=== PATIENT | female | born 1945 | race Caucasian/White ===

== ENCOUNTER → 2018-01-08 10:17 | Outpatient (CLI) | payer OTHER, SELFPAY ==
--- NOTE | 2018-01-08 12:05 | DI.RAD.S_ITS ---
PROCEDURE: XR LUMBAR SPINE MIN 4V INDICATIONS: BACK PAIN UNSPECIFIED TECHNIQUE: 3 views of the lumbar spine acquired. COMPARISON: None. FINDINGS: Bones: 5 nonrib-bearing vertebrae are present. There is good I L5 on S1 anterolisthesis. There is a L5-S1 pars interarticularis defect. No vertebral body compression fractures. No suspicious bony lesions. Soft tissues: Overlying bowel gas pattern is normal. No suspicious soft tissue calcifications. Flexion/extension: There is limited range of motion with flexion and extension. No subluxation. IMPRESSION: L5-S1 spondylolysis and spondylolisthesis. No subluxation on flexion/extension. Dictated by: Bee Martinez M.D. on 01/08/2018 at 17:56 Approved by: Bee Martinez M.D. on 01/08/2018 at 17:58
[2018-01-08 12:32] LABS: Hep C Virus Ab w/Reflex Quant NEGATIVE s/c (NEGATIVE)
== END ==
PROVIDERS: PCP Physician Assistant; Visit Provider Neurological Surgery
DX: Z11.59 Encounter for screening for other viral diseases (principal); M54.9 Dorsalgia, unspecified
CPT/HCPCS: 36415; 72110; 86803

== ENCOUNTER → 2018-03-25 07:04 | Outpatient (CLI) | payer OTHER, SELFPAY ==
[2018-03-25 09:07] LABS: Add Manual Diff / Slide Review NO; Basophils Percent Auto 0.8 % (0-2); Eosinophils Percent Auto 2.9 % (2-4); Hematocrit 39.7 % (36-46); Hemoglobin 13.3 g/dL (12.0-16.0); Lymphocytes Percent Auto 50.2 % (25-40); Mean Corpuscular HGB Conc 33.6 % (30-36); Mean Corpuscular Hemoglobin 30.8 PG (26-34); Mean Corpuscular Volume 91.9 fL (80-100); Monocytes Percent Auto 9.2 % (3-14); Neutrophils Absolute Auto 2000 /uL (3000-5900); Neutrophils Percent Auto 36.9 % (50-75); Platelet Count 259 X10^3/uL (150-400); Red Blood Cell Count 4.33 X10^6/uL (4.0-5.2); Red Cell Distribution Width 13.5 % (11.6-14.8); White Blood Cell Count 5.5 X10^3/uL (4.5-11.0)
[2018-03-25 09:38] LABS: Alanine Aminotransferase 30 IU/L (9-52); Albumin 4.4 g/dL (3.5-5.0); Albumin Globulin Ratio 1.5 (1.0-2.8); Alkaline Phosphatase 79 U/L (38-126); Aspartate Aminotransferase 28 IU/L (14-36); BUN Creatinine Ratio 14.4 (6-22); Bilirubin Total 0.8 mg/dL (0.2-1.3); Blood Urea Nitrogen 13 mg/dL (7-17); Calcium 9.3 mg/dL (8.4-10.2); Carbon Dioxide 29 mmol/L (22-32); Chloride 101 mmol/L (98-107); Cholesterol 206 mg/dL (140-199); Estimated Glomerular Filt Rate > 60.0 mL/min (>60); Glucose 89 mg/dL (80-110); HDL Cholesterol 63 mg/dL (40-60); HEMOLYSIS < 15 (0-50); LDL Cholesterol Calculated 121 mg/dL (<100); Potassium 3.8 mmol/L (3.4-5.1); Sodium 140 mmol/L (137-145); Total Protein 7.4 g/dL (6.3-8.2); Triglycerides 110 mg/dL (35-150)
[2018-03-25 09:49] LABS: Vitamin D 25 Hydroxy (D3) 54.9 ng/mL (30.0-100.0)
[2018-03-25 09:53] LABS: Free T4, Direct Thyroxine 1.67 ng/dL (0.78-2.19)
[2018-03-25 10:07] LABS: Thyroid Stimulating Hormone 3.21 uIU/mL (0.47-4.68)
[2018-03-25 10:21] LABS: Vitamin B12 > 1000 pg/mL (239-931)
== END ==
PROVIDERS: PCP Physician Assistant; Visit Provider Physician Assistant
DX: E03.9 Hypothyroidism, unspecified (principal); E78.5 Hyperlipidemia, unspecified; M81.0 Age-related osteoporosis without current pathological fracture; D51.0 Vitamin B12 deficiency anemia due to intrinsic factor deficiency
CPT/HCPCS: 36415; 80053; 80061; 82306; 82607; 84439; 84443; 85025

== ENCOUNTER → 2018-06-13 09:36 | Outpatient (CLI) | payer OTHER, SELFPAY ==
[2018-06-13 11:00] LABS: BUN Creatinine Ratio 15.7 (6-22); Blood Urea Nitrogen 11 mg/dL (7-17); Calcium 9.5 mg/dL (8.4-10.2); Carbon Dioxide 28 mmol/L (22-32); Chloride 101 mmol/L (98-107); Estimated Glomerular Filt Rate > 60.0 mL/min (>60); Glucose 97 mg/dL (80-110); HEMOLYSIS < 15 (0-50); Potassium 4.5 mmol/L (3.4-5.1); Sodium 143 mmol/L (137-145)
== END ==
PROVIDERS: PCP Physician Assistant; Visit Provider Physician Assistant
DX: E78.1 Pure hyperglyceridemia (principal)
CPT/HCPCS: 36415; 80048

== ENCOUNTER → 2018-06-26 11:27 | Outpatient (CLI) | payer OTHER, SELFPAY ==
[2018-06-26 11:56] LABS: Add Manual Diff / Slide Review NO; Basophils Percent Auto 0.8 % (0-2); Eosinophils Percent Auto 1.5 % (2-4); Hemoglobin 11.5 g/dL (12.0-16.0); Lymphocytes Percent Auto 32.3 % (25-40); Mean Corpuscular HGB Conc 33.7 % (30-36); Mean Corpuscular Hemoglobin 30.8 PG (26-34); Mean Corpuscular Volume 91.5 fL (80-100); Neutrophils Absolute Auto 4500 /uL (1500-7000); Neutrophils Percent Auto 58.4 % (50-75); Platelet Count 540 X10^3/uL (150-400); Red Blood Cell Count 3.72 X10^6/uL (4.0-5.2); Red Cell Distribution Width 14.4 % (11.6-14.8); White Blood Cell Count 7.7 X10^3/uL (4.5-11.0)
[2018-06-26 12:26] LABS: HEMOLYSIS < 15 (0-50); Iron 68 ug/dL (37-170)
[2018-06-26 12:39] LABS: Percent Iron Saturation 20 % (15-50); Total Iron Binding Capacity 343 ug/dL (265-497); Transferrin 302 mg/dL (206-381)
[2018-06-26 12:47] LABS: Ferritin 37.3 ng/mL (11.1-264)
[2018-06-26 13:00] LABS: Vitamin B12 943 pg/mL (239-931)
== END ==
PROVIDERS: PCP Physician Assistant; Visit Provider Physician Assistant
DX: D51.0 Vitamin B12 deficiency anemia due to intrinsic factor deficiency (principal); R79.89 Other specified abnormal findings of blood chemistry
CPT/HCPCS: 36415; 82607; 82728; 83540; 83550; 85025

== ENCOUNTER → 2018-09-20 08:34 | Outpatient (CLI) | payer OTHER, SELFPAY ==
[2018-09-20 09:51] LABS: Add Manual Diff / Slide Review NO; Basophils Absolute Auto 0 /uL (0-100); Basophils Percent Auto 0.7 % (0-2); Eosinophils Absolute Auto 100 /uL (0-450); Eosinophils Percent Auto 2.1 % (2-4); Hemoglobin 12.5 g/dL (12.0-16.0); Lymphocytes Absolute Auto 2600 /uL (1100-4500); Lymphocytes Percent Auto 41.3 % (25-40); Mean Corpuscular HGB Conc 32.8 % (30-36); Mean Corpuscular Hemoglobin 29.7 PG (26-34); Mean Corpuscular Volume 90.6 fL (80-100); Monocytes Absolute Auto 500 /uL (0-900); Monocytes Percent Auto 8.2 % (3-14); Neutrophils Absolute Auto 3000 /uL (1500-7000); Neutrophils Percent Auto 47.7 % (50-75); Platelet Count 281 X10^3/uL (150-400); Red Cell Distribution Width 13.9 % (11.6-14.8); White Blood Cell Count 6.3 X10^3/uL (4.5-11.0)
[2018-09-20 10:12] LABS: Alanine Aminotransferase 33 IU/L (9-52); Albumin 4.5 g/dL (3.5-5.0); Albumin Globulin Ratio 1.5 (1.0-2.8); Alkaline Phosphatase 80 U/L (38-126); Aspartate Aminotransferase 34 IU/L (14-36); BUN Creatinine Ratio 13.8 (6-22); Bilirubin Total 0.6 mg/dL (0.2-1.3); Blood Urea Nitrogen 11 mg/dL (7-17); Calcium 9.3 mg/dL (8.4-10.2); Carbon Dioxide 25 mmol/L (22-32); Chloride 98 mmol/L (98-107); Estimated Glomerular Filt Rate > 60.0 mL/min (>60); Glucose 96 mg/dL (80-110); HEMOLYSIS < 15 (0-50); Potassium 4.1 mmol/L (3.4-5.1); Sodium 134 mmol/L (137-145); Total Protein 7.5 g/dL (6.3-8.2)
[2018-09-20 10:56] LABS: Vitamin B12 869 pg/mL (239-931)
[2018-09-20 10:59] LABS: Thyroid Stimulating Hormone 1.46 uIU/mL (0.47-4.68)
== END ==
PROVIDERS: PCP Physician Assistant; Visit Provider Internal Medicine
DX: Z00.00 Encounter for general adult medical examination without abnormal findings (principal); D51.0 Vitamin B12 deficiency anemia due to intrinsic factor deficiency; E03.9 Hypothyroidism, unspecified
CPT/HCPCS: 36415; 80053; 82607; 84443; 85025

== ENCOUNTER 2018-10-08 13:45 | Outpatient (RCR) | payer OTHER, SELFPAY ==
--- NOTE | 2018-08-27 16:25 | PT.OPPOC ---
Current Diagnoses Lumbago with sciatica, right side (08/27/18) Low back pain (08/27/18) Provider Visit Care Team Role Provider Type Amanda Burgos PA-C Attending Provider Advanced Manager Forensic Primary Care Provider Specialty: Medical Address: [address] [place] [address], [id number] Email: [email or web address] Plan Of Care PT-OP-T Assessment and Plan Start: 07/11/18 11:48 Freq: Status: Active Protocol: Document 08/27/18 11:08 [facility] (Rec: 08/29/18 09:25 [facility] [id number]) Physical Therapy Assessment Rehab Potential Rehabilitation Potential Good Evaluation Complexity Number of Personal Factors/Comorbidities 3 or More Number of Body Systems Impaired 4 or More Clinical Presentation at Evaluation Evolving Impairments Impairments Activity Tolerance Balance Functional Activities Functional Mobility Gait Pain Posture ROM Soft Tissue Mobility Strength Other Concerns Barriers to Rehabilitation Limited insurance benefit 6 visits allowed before pre-auth Goals posture Short Term Goal (STG) Pt will present with good posture without cueing. STG Duration 09/27/18 Dye Automation Operator Goal (LTG) Pt will have good postural awareness during gardening and will understand appropriate positioning. LTG Duration 10/27/18 strength Short Term Goal (STG) Pt will be indep with HEP STG Duration 09/27/18 Dye Automation Operator Goal (LTG) Pt will have 5/5 strength in LE and demonstrate good core control with 4/5 LPM in all planes LTG Duration 10/27/18 lifting Mcc Goal (LTG) Pt will be able to do lifting without LBP and with good mechanics without cueing. LTG Duration 10/27/18 Assessment Summary Assessment Pt presents s/p lumbar fusion with radicular pain that limits her activity. She has impaired posture, dec LE & core strength, impaired movement patterns and limited activity tolerance d/t pain. Pt would benefit from skilled PT to address these concerns and dec pt's daily pain. Physical Therapy Plan Frequency and Duration Frequency of Treatment 1-2x/week Duration of Treatment 2 months Plan of Care Start Date 08/29/18 Plan of Care End Date 10/29/18 Therapeutic Interventions Therapeutic Interventions Aquatic Therapy Balance Training Gait Training Home Exercise Program Joint Mobilizations Manual Therapy Soft Tissue Mobilization Taping Therapeutic Activities Therapeutic Exercises Modalities Cold Pack/Ice Massage Electric Stimulation Hot Packs Ultrasound Next Visit Focus/Plan Next Note Type Treatment Note Next Visit Plan Core stability exercises, postural edu, STM Plan of Care Dates Plan of Care Start Date 08/29/18 Plan of Care End Date 10/29/18 Please Sign and Return: I have reviewed this Plan of Care and certify that the skilled therapy services above are required to meet the patient?s needs. Physician Signature Date Printed Name and Credentials Clinical Instructor Signature Printed Name and Credentials
--- NOTE | 2018-08-27 16:25 | PT.OIE ---
Current Diagnoses Lumbago with sciatica, right side (08/27/18) Low back pain (08/27/18) Past Medical History (Last Updated 03/04/18 @ 10:56 by Samantha Mcnally) Actinic keratosis (Chronic 1997) Ankle pain (Chronic 1967) Anxiety (Chronic 2014) Cardiac arrhythmia (Chronic 2009) Cataract (Chronic 2007) Chronic back pain (Chronic 1995) Hayfever (Chronic 1995) Hypothyroidism (Chronic 1997) Nasal valve collapse (Chronic 2004) Osteoarthritis (Chronic 1995) Osteopenia (Chronic) Osteoporosis (Chronic 1995) Peripheral neuropathy (Chronic 2005) Pernicious anemia (Chronic 2000) Scoliosis (Chronic) Sleep apnea (Chronic 2011) Tinnitus (Chronic 1995) Urinary incontinence (Chronic 2015) Abnormal Pap smear of cervix (Resolved 1995) Ankle fracture (Resolved 1966) Cervical cancer (Resolved 1997) Cervical dysplasia (Resolved 1995) Chicken pox (Resolved 1955) Genital warts (Resolved 1995) HPV (human papilloma virus) infection (Resolved 1995) Head injury with loss of consciousness (Resolved 03/2015) Infection of hand due to bite (Resolved 1974) Measles (Resolved 1956) Mumps (Resolved 1955) Recurrent sinusitis (Resolved 1995) Skin cancer (Resolved 2007) Squamous cell carcinoma of skin of left cheek (Resolved 2007) Past Surgical History (Last Updated 03/04/18 @ 10:33 by Samantha Mcnally) Anesthesia complication (Resolved) History of hand surgery (Resolved 1974) History of surgery of head (Resolved 03/2015) Status post Mohs surgery (Resolved 1997) Status post hysterectomy (Resolved 1997) Provider Visit Care Team Role Provider Type Amanda Burgos PA-C Attending Provider Advanced Docent Coordinator Primary Care Provider Specialty: Medical Address: [address] [place] [address], [facility] Email: [email or web address] Physical Therapy Initial Evaluation PT-OP-A Visit Information Start: 07/11/18 11:48 Freq: Status: Active Protocol: Document 08/27/18 11:08 [facility] (Rec: 08/27/18 12:19 [facility] [id number]) Out-Patient Physical Therapy Visit Information Visit Information Visit Type Initial Evaluation Visit Start Time 11:20 Visit Stop Time 12:10 Total Visit Minutes 50 Visit Number 1/6 Number of RECORDS ANALYST Visits 0 Precautions Precautions Limit bending, twisting and lifting >8 Lb PT-OP-B Current Condition Start: 07/11/18 11:48 Freq: Status: Active Protocol: Document 08/27/18 11:08 [facility] (Rec: 08/27/18 12:19 [facility] [id number]) Current Condition History of Current Condition Onset Date fusion 06/05/19 History of Current Condition Pt had a back fusion Jun 05, 2018 and has history of hystorectomy 20 years ago. Reports LBP for past 18 years that got worse over the past 2 years. Her main concern is sciatic pain that travels from buttocks into lat thigh and into lower leg and foot. Pt reports she wants to also work on posture. Pt notes she is doing glute and quad sets as instructed. Pt has mild incontence with sneezing but no other issues. Pt likes to walk and garden. Pt reports sometimes back grabs: and she has to completely stop activity. Prior Treatments and Tests MRI & EMG showed issues at L5 & S1 Treatment Goals Patient/Caregiver Goals Improve posture & get exercises to improve sciatic; learn how to bend; gardening PT-OP-C Subjective Start: 07/11/18 11:48 Freq: Status: Active Protocol: Document 08/27/18 11:08 [facility] (Rec: 08/27/18 12:19 [facility] [id number]) Patient Questionnaires Oswestry Low Back Index Oswestry Score 46 Oswestry Impairment 40 to 59% Impaired (Score 40- 59) OP-PT Pain Assessment Location LBP & RLE Pain Location Details LBP Intensity 7 Scale Used Numeric (1 - 10) Description Burning Throbbing Description- Other goes higher w/catching of LB, Frequency Daily Radiating Location R hip and lat R leg & cannon & foot that gets worse in PM Variations/Patterns sometimes 2 lat toes & lat foot goes numb Pain Aggravating Factors Sitting Other Pain Aggravating Factors end of day, disturbs sleep, gardening Pain Alleviating Factors Cold Other Pain Alleviating Factors change positions frequently PT-OP-J Posture/Palpation/Skin Start: 07/11/18 11:48 Freq: Status: Active Protocol: Document 08/27/18 11:08 [facility] (Rec: 08/27/18 12:19 [facility] [id number]) Posture Evaluation Dannielle Postural Classification System Dannielle Postural Classifications Anterior/Posterior PT-OP-M Strength Start: 07/11/18 11:48 Freq: Status: Active Protocol: Document 08/27/18 11:08 [facility] (Rec: 08/27/18 12:19 [facility] [id number]) Hip Strength Hip Manual Muscle Testing Right Flexion (L2) 5 Normal Abduction 3+ Fair+ External Rotation 4- Good- Internal Rotation 4 Good Left Flexion (L2) 4+ Good+ Abduction 4- Good- External Rotation 4 Good Internal Rotation 4 Good Knee Strength Knee Manual Muscle Testing Right Flexion (S2) 4 Good Extension (L3) 4 Good Left Flexion (S2) 4 Good Extension (L3) 4 Good Ankle/Foot Strength Ankle and Foot Manual Muscle Testing Right Dorsiflexion (L4) 5 Normal Plantarflexion (S1) 4 Good Left Dorsiflexion (L4) 5 Normal Plantarflexion (S1) 5 Normal Comments PF tested seated PT-OP-Q Treatments Start: 07/11/18 11:48 Freq: Status: Active Protocol: Document 08/27/18 11:08 [facility] (Rec: 08/29/18 09:25 [facility] [id number]) Therapeutic Exercises Supine Exercises figure 4 stretch Supine Exercise Name figure 4 Side bilateral Reps/Minutes 30 sec Self-Care/Home Management Treatment Education Other Education anatomy edu and importance of core and appropriate movement patterns PT-OP-T Assessment and Plan Start: 07/11/18 11:48 Freq: Status: Active Protocol: Document 08/27/18 11:08 [facility] (Rec: 08/29/18 09:25 [facility] [id number]) Physical Therapy Assessment Rehab Potential Rehabilitation Potential Good Evaluation Complexity Number of Personal Factors/Comorbidities 3 or More Number of Body Systems Impaired 4 or More Clinical Presentation at Evaluation Evolving Impairments Impairments Activity Tolerance Balance Functional Activities Functional Mobility Gait Pain Posture ROM Soft Tissue Mobility Strength Other Concerns Barriers to Rehabilitation Limited insurance benefit 6 visits allowed before pre-auth Goals posture Short Term Goal (STG) Pt will present with good posture without cueing. STG Duration 09/27/18 Halfway Goal (LTG) Pt will have good postural awareness during gardening and will understand appropriate positioning. LTG Duration 10/27/18 strength Short Term Goal (STG) Pt will be indep with HEP STG Duration 09/27/18 Halfway Goal (LTG) Pt will have 5/5 strength in LE and demonstrate good core control with 4/5 LPM in all planes LTG Duration 10/27/18 lifting Knitter Helper Goal (LTG) Pt will be able to do lifting without LBP and with good mechanics without cueing. LTG Duration 10/27/18 Assessment Summary Assessment Pt presents s/p lumbar fusion with radicular pain that limits her activity. She has impaired posture, dec LE & core strength, impaired movement patterns and limited activity tolerance d/t pain. Pt would benefit from skilled PT to address these concerns and dec pt's daily pain. Physical Therapy Plan Frequency and Duration Frequency of Treatment 1-2x/week Duration of Treatment 2 months Plan of Care Start Date 08/29/18 Plan of Care End Date 10/29/18 Therapeutic Interventions Therapeutic Interventions Aquatic Therapy Balance Training Gait Training Home Exercise Program Joint Mobilizations Manual Therapy Soft Tissue Mobilization Taping Therapeutic Activities Therapeutic Exercises Modalities Cold Pack/Ice Massage Electric Stimulation Hot Packs Ultrasound Next Visit Focus/Plan Next Note Type Treatment Note Next Visit Plan Core stability exercises, postural edu, STM
--- NOTE | 2018-08-30 14:34 | PT.OTN ---
Current Diagnoses Lumbago with sciatica, right side (08/30/18) Low back pain (08/30/18) Physical Therapy Treatment Note PT-OP-A Visit Information Start: 07/11/18 11:48 Freq: Status: Active Protocol: Document 08/30/18 14:15 [facility] (Rec: 08/30/18 14:34 [facility] [id number]) Out-Patient Physical Therapy Visit Information Visit Information Visit Type Treatment Note Visit Start Time 13:00 Visit Stop Time 14:00 Total Visit Minutes 60 Visit Number 2/6 Number of INSPECTOR PLUG SEAM Visits 0 PT-OP-B Current Condition Start: 07/11/18 11:48 Freq: Status: Active Protocol: Document 08/27/18 11:08 [facility] (Rec: 08/27/18 12:19 [facility] [id number]) Current Condition History of Current Condition Onset Date fusion 06/05/19 History of Current Condition Pt had a back fusion Jun 05, 2018 and has history of hystorectomy 20 years ago. Reports LBP for past 18 years that got worse over the past 2 years. Her main concern is sciatic pain that travels from buttocks into lat thigh and into lower leg and foot. Pt reports she wants to also work on posture. Pt notes she is doing glute and quad sets as instructed. Pt has mild incontence with sneezing but no other issues. Pt likes to walk and garden. Pt reports sometimes back grabs: and she has to completely stop activity. Prior Treatments and Tests MRI & EMG showed issues at L5 & S1 Treatment Goals Patient/Caregiver Goals Improve posture & get exercises to improve sciatic; learn how to bend; gardening PT-OP-C Subjective Start: 07/11/18 11:48 Freq: Status: Active Protocol: Document 08/30/18 14:15 [facility] (Rec: 08/30/18 14:34 [facility] [id number]) OP-PT Subjective Patient Comments Patient Comments Pt reports her leg is a little sore today. PT-OP-J Posture/Palpation/Skin Start: 07/11/18 11:48 Freq: Status: Active Protocol: Document 08/27/18 11:08 [facility] (Rec: 08/27/18 12:19 [facility] [id number]) Posture Evaluation Dannielle Postural Classification System Dannielle Postural Classifications Anterior/Posterior PT-OP-M Strength Start: 07/11/18 11:48 Freq: Status: Active Protocol: Document 08/27/18 11:08 [facility] (Rec: 08/27/18 12:19 [facility] [id number]) Hip Strength Hip Manual Muscle Testing Right Flexion (L2) 5 Normal Abduction 3+ Fair+ External Rotation 4- Good- Internal Rotation 4 Good Left Flexion (L2) 4+ Good+ Abduction 4- Good- External Rotation 4 Good Internal Rotation 4 Good Knee Strength Knee Manual Muscle Testing Right Flexion (S2) 4 Good Extension (L3) 4 Good Left Flexion (S2) 4 Good Extension (L3) 4 Good Ankle/Foot Strength Ankle and Foot Manual Muscle Testing Right Dorsiflexion (L4) 5 Normal Plantarflexion (S1) 4 Good Left Dorsiflexion (L4) 5 Normal Plantarflexion (S1) 5 Normal Comments PF tested seated PT-OP-Q Treatments Start: 07/11/18 11:48 Freq: Status: Active Protocol: Document 08/30/18 14:15 [facility] (Rec: 08/30/18 14:34 [facility] [id number]) Therapeutic Exercises Supine Exercises hip flex Supine Exercise Name diagonal hip isometric-single leg Side bilateral Reps/Minutes 10sec x2 august Supine Exercise Name scissors Side bilateral Reps/Minutes 15 Standing Exercises wall posture Standing Exercise Name roll up w/90/90 ER Therapeutic Activity Therapeutic Activity log roll Name log roll posture Name standing posture edu and use of mirror Manual Therapy Treatment Soft Tissue Mobilization lumbar Body Location paraspinals & QL Mobilization Type Rolling Intensity/Depth Moderate Body Position Sidelying PT-OP-T Assessment and Plan Start: 07/11/18 11:48 Freq: Status: Active Protocol: Document 08/30/18 14:15 [facility] (Rec: 08/30/18 14:34 [facility] [id number]) Physical Therapy Assessment Goals posture Short Term Goal (STG) Pt will present with good posture without cueing. STG Duration 09/27/18 Fci Goal (LTG) Pt will have good postural awareness during gardening and will understand appropriate positioning. LTG Duration 10/27/18 strength Short Term Goal (STG) Pt will be indep with HEP STG Duration 09/27/18 [facility]ci Goal (LTG) Pt will have 5/5 strength in LE and demonstrate good core control with 4/5 LPM in all planes LTG Duration 10/27/18 lifting Fci Goal (LTG) Pt will be able to do lifting without LBP and with good mechanics without cueing. LTG Duration 10/27/18 Assessment Summary Assessment Pt was able to repeat postural change and log roll technique by end of session. Minor cueing needed after initial edu and pt given handouts. Pt has significant scar tissue tightness. Physical Therapy Plan Frequency and Duration Frequency of Treatment 1-2x/week Duration of Treatment 2 months Plan of Care Start Date 08/29/18 Plan of Care End Date 10/29/18 Next Visit Focus/Plan Next Note Type Treatment Note Next Visit Plan Review exercises & STM
--- NOTE | 2018-09-06 15:49 | PT.OTN ---
Current Diagnoses Lumbago with sciatica, right side (09/06/18) Low back pain (09/06/18) Physical Therapy Treatment Note PT-OP-A Visit Information Start: 07/11/18 11:48 Freq: Status: Active Protocol: Document 09/06/18 15:43 [facility] (Rec: 09/06/18 15:49 [facility] [id number]) Out-Patient Physical Therapy Visit Information Visit Information Visit Type Treatment Note Visit Start Time 14:38 Visit Stop Time 15:38 Total Visit Minutes 60 Visit Number 3/6 Number of DIESEL ENGINEER Visits 0 PT-OP-B Current Condition Start: 07/11/18 11:48 Freq: Status: Active Protocol: Document 08/27/18 11:08 [facility] (Rec: 08/27/18 12:19 [facility] [id number]) Current Condition History of Current Condition Onset Date fusion 06/05/19 History of Current Condition Pt had a back fusion Jun 05, 2018 and has history of hystorectomy 20 years ago. Reports LBP for past 18 years that got worse over the past 2 years. Her main concern is sciatic pain that travels from buttocks into lat thigh and into lower leg and foot. Pt reports she wants to also work on posture. Pt notes she is doing glute and quad sets as instructed. Pt has mild incontence with sneezing but no other issues. Pt likes to walk and garden. Pt reports sometimes back grabs: and she has to completely stop activity. Prior Treatments and Tests MRI & EMG showed issues at L5 & S1 Treatment Goals Patient/Caregiver Goals Improve posture & get exercises to improve sciatic; learn how to bend; gardening PT-OP-C Subjective Start: 07/11/18 11:48 Freq: Status: Active Protocol: Document 09/06/18 15:43 [facility] (Rec: 09/06/18 15:49 [facility] [id number]) OP-PT Subjective Patient Comments Patient Comments Pt reports she had some difficulty with exercises & had questions. PT-OP-J Posture/Palpation/Skin Start: 07/11/18 11:48 Freq: Status: Active Protocol: Document 08/27/18 11:08 [facility] (Rec: 08/27/18 12:19 [facility] [id number]) Posture Evaluation Dannielle Postural Classification System Dannielle Postural Classifications Anterior/Posterior PT-OP-M Strength Start: 07/11/18 11:48 Freq: Status: Active Protocol: Document 08/27/18 11:08 [facility] (Rec: 08/27/18 12:19 [facility] [id number]) Hip Strength Hip Manual Muscle Testing Right Flexion (L2) 5 Normal Abduction 3+ Fair+ External Rotation 4- Good- Internal Rotation 4 Good Left Flexion (L2) 4+ Good+ Abduction 4- Good- External Rotation 4 Good Internal Rotation 4 Good Knee Strength Knee Manual Muscle Testing Right Flexion (S2) 4 Good Extension (L3) 4 Good Left Flexion (S2) 4 Good Extension (L3) 4 Good Ankle/Foot Strength Ankle and Foot Manual Muscle Testing Right Dorsiflexion (L4) 5 Normal Plantarflexion (S1) 4 Good Left Dorsiflexion (L4) 5 Normal Plantarflexion (S1) 5 Normal Comments PF tested seated PT-OP-Q Treatments Start: 07/11/18 11:48 Freq: Status: Active Protocol: Document 09/06/18 15:43 [facility] (Rec: 09/06/18 15:49 [facility] [id number]) Therapeutic Exercises Supine Exercises pelvic floor Supine Exercise Name pelvic floor contraction Comments max cueing glute set Supine Exercise Name glute set Side bilateral Comments avoiding adding pelvic tilt heel slide Supine Exercise Name w/pelvic floor contraction Side bilateral Reps/Minutes 5 hip flex Supine Exercise Name diagonal hip isometric-single leg Side bilateral Reps/Minutes 10sec x2 Comments focus on breathing & pelvic floor contraction Standing Exercises wall posture Standing Exercise Name roll up w/90/90 ER Therapeutic Activity Therapeutic Activity log roll Name log roll posture Name standing posture edu and use of mirror Self-Care/Home Management Treatment Activities Self-Care/Home Management Activities edu on pelvic floor vs abdominal mm & glutes; edu of difference between pelvic floor contraction & pelvic tilt PT-OP-T Assessment and Plan Start: 07/11/18 11:48 Freq: Status: Active Protocol: Document 09/06/18 15:43 [facility] (Rec: 09/06/18 15:49 [facility] [id number]) Physical Therapy Assessment Goals posture Short Term Goal (STG) Pt will present with good posture without cueing. STG Duration 09/27/18 Retirement Goal (LTG) Pt will have good postural awareness during gardening and will understand appropriate positioning. LTG Duration 10/27/18 strength Short Term Goal (STG) Pt will be indep with HEP STG Duration 09/27/18 Retirement Goal (LTG) Pt will have 5/5 strength in LE and demonstrate good core control with 4/5 LPM in all planes LTG Duration 10/27/18 lifting Rn Testing Goal (LTG) Pt will be able to do lifting without LBP and with good mechanics without cueing. LTG Duration 10/27/18 Assessment Summary Assessment Pt required max cueing for all exercises for appropriate form and movement. She strugged with her shoulder blades from arching her back and had difficulty maintaining back on wall with UE movement during wall posture. Max cueing was required for arm position during wall roll up exercise, which took inc time to educate her on this exercise. Adjustment was given to pt on scissor exercise d/t pt noting she has grade 3 prolapse of bladder and had significant difficulty isolating pelvic floor. Physical Therapy Plan Frequency and Duration Frequency of Treatment 1-2x/week Duration of Treatment 2 months Plan of Care Start Date 08/29/18 Plan of Care End Date 10/29/18 Next Visit Focus/Plan Next Note Type Treatment Note Next Visit Plan lifting mechanics, balance & review exercises
--- NOTE | 2018-09-20 09:10 | PT.OTN ---
Current Diagnoses Lumbago with sciatica, right side (09/20/18) Low back pain (09/20/18) Physical Therapy Treatment Note PT-OP-A Visit Information Start: 07/11/18 11:48 Freq: Status: Active Protocol: Document 09/20/18 07:28 [facility] (Rec: 09/20/18 09:10 [facility] [id number]) Out-Patient Physical Therapy Visit Information Visit Information Visit Type Treatment Note Visit Start Time 07:30 Visit Stop Time 08:20 Total Visit Minutes 50 Visit Number 4/6 Number of SEWER Visits 0 PT-OP-B Current Condition Start: 07/11/18 11:48 Freq: Status: Active Protocol: Document 08/27/18 11:08 [facility] (Rec: 08/27/18 12:19 [facility] [id number]) Current Condition History of Current Condition Onset Date fusion 06/05/19 History of Current Condition Pt had a back fusion Jun 05, 2018 and has history of hystorectomy 20 years ago. Reports LBP for past 18 years that got worse over the past 2 years. Her main concern is sciatic pain that travels from buttocks into lat thigh and into lower leg and foot. Pt reports she wants to also work on posture. Pt notes she is doing glute and quad sets as instructed. Pt has mild incontence with sneezing but no other issues. Pt likes to walk and garden. Pt reports sometimes back grabs: and she has to completely stop activity. Prior Treatments and Tests MRI & EMG showed issues at L5 & S1 Treatment Goals Patient/Caregiver Goals Improve posture & get exercises to improve sciatic; learn how to bend; gardening PT-OP-C Subjective Start: 07/11/18 11:48 Freq: Status: Active Protocol: Document 09/20/18 07:28 [facility] (Rec: 09/20/18 09:10 [facility] [id number]) OP-PT Subjective Patient Comments Patient Comments Pt reports she will be getting bladder surgery after summer. Reports her bladder is getting lower. She has pain after about 15 min of gardening. PT-OP-J Posture/Palpation/Skin Start: 07/11/18 11:48 Freq: Status: Active Protocol: Document 08/27/18 11:08 [facility] (Rec: 08/27/18 12:19 [facility] [id number]) Posture Evaluation Dannielle Postural Classification System Dannielle Postural Classifications Anterior/Posterior PT-OP-M Strength Start: 07/11/18 11:48 Freq: Status: Active Protocol: Document 08/27/18 11:08 [facility] (Rec: 08/27/18 12:19 [facility] [id number]) Hip Strength Hip Manual Muscle Testing Right Flexion (L2) 5 Normal Abduction 3+ Fair+ External Rotation 4- Good- Internal Rotation 4 Good Left Flexion (L2) 4+ Good+ Abduction 4- Good- External Rotation 4 Good Internal Rotation 4 Good Knee Strength Knee Manual Muscle Testing Right Flexion (S2) 4 Good Extension (L3) 4 Good Left Flexion (S2) 4 Good Extension (L3) 4 Good Ankle/Foot Strength Ankle and Foot Manual Muscle Testing Right Dorsiflexion (L4) 5 Normal Plantarflexion (S1) 4 Good Left Dorsiflexion (L4) 5 Normal Plantarflexion (S1) 5 Normal Comments PF tested seated PT-OP-Q Treatments Start: 07/11/18 11:48 Freq: Status: Active Protocol: Document 09/20/18 07:28 [facility] (Rec: 09/20/18 09:10 [facility] [id number]) Therapeutic Exercises Standing Exercises wall posture Standing Exercise Name roll up w/90/90 ER Therapeutic Activity Therapeutic Activity exercises Name discussed avoiding bearing down and no more abdominal or pelvic floor ex lifting Name lifitng from surface then floor Comments progressed from hip hinge to squat; no holding breath gardening Name position for gardening & avoiding bending & twisting posture Name standing posture edu and use of mirror Neuro Re-Education Treatment Balance Activities august Details march w/head turn Reps/Duration 10 Comments by counter NBOS Details EC Comments by counter tandem Details w/head turns B Comments by counter SLS Details w/head turns B Comments by counter PT-OP-T Assessment and Plan Start: 07/11/18 11:48 Freq: Status: Active Protocol: Document 09/20/18 07:28 [facility] (Rec: 09/20/18 09:10 [facility] [id number]) Physical Therapy Assessment Goals posture Short Term Goal (STG) Pt will present with good posture without cueing. STG Duration 09/27/18 [employer] Goal (LTG) Pt will have good postural awareness during gardening and will understand appropriate positioning. LTG Duration 10/27/18 strength Short Term Goal (STG) Pt will be indep with HEP STG Duration 09/27/18 Long-Term Goal (LTG) Pt will have 5/5 strength in LE and demonstrate good core control with 4/5 LPM in all planes LTG Duration 10/27/18 lifting Long-Term Goal (LTG) Pt will be able to do lifting without LBP and with good mechanics without cueing. LTG Duration 10/27/18 Assessment Summary Assessment Pt required significant cueing for positioning bt pt appears to understand importance and appropriate positioning for lifting & gardening. Physical Therapy Plan Frequency and Duration Frequency of Treatment 1-2x/week Duration of Treatment 2 months Plan of Care Start Date 08/29/18 Plan of Care End Date 10/29/18 Next Visit Focus/Plan Next Note Type Treatment Note Next Visit Plan revierw lifting & balance
--- NOTE | 2018-09-25 15:36 | PT.OTN ---
Current Diagnoses Lumbago with sciatica, right side (09/25/18) Low back pain (09/25/18) Physical Therapy Treatment Note PT-OP-A Visit Information Start: 07/11/18 11:48 Freq: Status: Active Protocol: Document 09/25/18 15:11 [facility] (Rec: 09/25/18 15:36 [facility] [id number]) Out-Patient Physical Therapy Visit Information Visit Information Visit Type Treatment Note Visit Start Time 14:30 Visit Stop Time 15:15 Total Visit Minutes 45 Visit Number 5/6 PT-OP-B Current Condition Start: 07/11/18 11:48 Freq: Status: Active Protocol: Document 08/27/18 11:08 [facility] (Rec: 08/27/18 12:19 [facility] [id number]) Current Condition History of Current Condition Onset Date fusion 06/05/19 History of Current Condition Pt had a back fusion Jun 05, 2018 and has history of hystorectomy 20 years ago. Reports LBP for past 18 years that got worse over the past 2 years. Her main concern is sciatic pain that travels from buttocks into lat thigh and into lower leg and foot. Pt reports she wants to also work on posture. Pt notes she is doing glute and quad sets as instructed. Pt has mild incontence with sneezing but no other issues. Pt likes to walk and garden. Pt reports sometimes back grabs: and she has to completely stop activity. Prior Treatments and Tests MRI & EMG showed issues at L5 & S1 Treatment Goals Patient/Caregiver Goals Improve posture & get exercises to improve sciatic; learn how to bend; gardening PT-OP-C Subjective Start: 07/11/18 11:48 Freq: Status: Active Protocol: Document 09/25/18 15:11 [facility] (Rec: 09/25/18 15:36 [facility] [id number]) OP-PT Subjective Patient Comments Patient Comments Pt reports she now has a UTI so she is taking an antibiotic . Reports she has been doing the balance and working on posture and feels it is helpful. PT-OP-J Posture/Palpation/Skin Start: 07/11/18 11:48 Freq: Status: Active Protocol: Document 08/27/18 11:08 [facility] (Rec: 08/27/18 12:19 [facility] [id number]) Posture Evaluation Dannielle Postural Classification System Dannielle Postural Classifications Anterior/Posterior PT-OP-M Strength Start: 07/11/18 11:48 Freq: Status: Active Protocol: Document 08/27/18 11:08 [facility] (Rec: 08/27/18 12:19 [facility] [id number]) Hip Strength Hip Manual Muscle Testing Right Flexion (L2) 5 Normal Abduction 3+ Fair+ External Rotation 4- Good- Internal Rotation 4 Good Left Flexion (L2) 4+ Good+ Abduction 4- Good- External Rotation 4 Good Internal Rotation 4 Good Knee Strength Knee Manual Muscle Testing Right Flexion (S2) 4 Good Extension (L3) 4 Good Left Flexion (S2) 4 Good Extension (L3) 4 Good Ankle/Foot Strength Ankle and Foot Manual Muscle Testing Right Dorsiflexion (L4) 5 Normal Plantarflexion (S1) 4 Good Left Dorsiflexion (L4) 5 Normal Plantarflexion (S1) 5 Normal Comments PF tested seated PT-OP-Q Treatments Start: 07/11/18 11:48 Freq: Status: Active Protocol: Document 09/25/18 15:11 [facility] (Rec: 09/25/18 15:36 [facility] [id number]) Therapeutic Exercises Supine Exercises stretches Supine Exercise Name HS, piriformis stretches Side bilateral Reps/Minutes 30 sec Standing Exercises sidestep Standing Exercise Name side step Side bilateral Therapeutic Activity Therapeutic Activity sitting Name chair height and desk set up lifting Name lifitng from surface then floor Comments progressed from hip hinge to squat; no holding breath gardening Name position for gardening & avoiding bending & twisting Comments review verbally posture Name standing posture edu and use of mirror Neuro Re-Education Treatment Balance Activities august Details august w/head turn Reps/Duration 10 Comments by counter tandem Details w/head turns B Comments by counter SLS Details w/head turns B Comments by counter PT-OP-T Assessment and Plan Start: 07/11/18 11:48 Freq: Status: Active Protocol: Document 09/25/18 15:11 [facility] (Rec: 09/25/18 15:36 [facility] [id number]) Physical Therapy Assessment Goals posture Short Term Goal (STG) Pt will present with good posture without cueing. STG Duration 09/27/18 P[facility] Lead Goal (LTG) Pt will have good postural awareness during gardening and will understand appropriate positioning. LTG Duration 10/27/18 strength Short Term Goal (STG) Pt will be indep with HEP STG Duration 09/27/18 Usp Goal (LTG) Pt will have 5/5 strength in LE and demonstrate good core control with 4/5 LPM in all planes LTG Duration 10/27/18 lifting Usp Goal (LTG) Pt will be able to do lifting without LBP and with good mechanics without cueing. LTG Duration 10/27/18 Assessment Summary Assessment Pt required less cueing for breathing today, but did note at home she notices she holds her breath. Pt was able to do balance exercises w/min cueing and verbalized understanding for sitting mechanics. Physical Therapy Plan Frequency and Duration Frequency of Treatment 1-2x/week Duration of Treatment 2 months Plan of Care Start Date 08/29/18 Plan of Care End Date 10/29/18 Next Visit Focus/Plan Next Note Type Treatment Note Next Visit Plan Add gentle strengthening as tolerated
--- NOTE | 2018-10-08 14:59 | PT.OTN ---
Current Diagnoses Lumbago with sciatica, right side (10/08/18) Low back pain (10/08/18) Physical Therapy Treatment Note PT-OP-A Visit Information Start: 07/11/18 11:48 Freq: Status: Active Protocol: Document 10/08/18 14:05 [facility] (Rec: 10/08/18 14:59 [facility] [id number]) Out-Patient Physical Therapy Visit Information Visit Information Visit Type Discharge Summary Visit Start Time 13:50 Visit Stop Time 14:43 Total Visit Minutes 53 Visit Number 6 PT-OP-B Current Condition Start: 07/11/18 11:48 Freq: Status: Active Protocol: Document 08/27/18 11:08 [facility] (Rec: 08/27/18 12:19 [facility] [id number]) Current Condition History of Current Condition Onset Date fusion 06/05/19 History of Current Condition Pt had a back fusion Jun 05, 2018 and has history of hystorectomy 20 years ago. Reports LBP for past 18 years that got worse over the past 2 years. Her main concern is sciatic pain that travels from buttocks into lat thigh and into lower leg and foot. Pt reports she wants to also work on posture. Pt notes she is doing glute and quad sets as instructed. Pt has mild incontence with sneezing but no other issues. Pt likes to walk and garden. Pt reports sometimes back grabs: and she has to completely stop activity. Prior Treatments and Tests MRI & EMG showed issues at L5 & S1 Treatment Goals Patient/Caregiver Goals Improve posture & get exercises to improve sciatic; learn how to bend; gardening PT-OP-C Subjective Start: 07/11/18 11:48 Freq: Status: Active Protocol: Document 10/08/18 14:05 [facility] (Rec: 10/08/18 14:59 [facility] [id number]) OP-PT Subjective Patient Comments Patient Comments Pt reports she has cont to have issue with her prolapse and has significant back pain off/on over past 2 weeks. Signifcant pain last week in [place] after stepping in a small hole and another time when stepping down her step. Pain has been better the past few days. PT-OP-J Posture/Palpation/Skin Start: 07/11/18 11:48 Freq: Status: Active Protocol: Document 08/27/18 11:08 [facility] (Rec: 08/27/18 12:19 [facility] [id number]) Posture Evaluation [facility] Postural Classification System Dannielle Postural Classifications Anterior/Posterior PT-OP-M Strength Start: 07/11/18 11:48 Freq: Status: Active Protocol: Document 08/27/18 11:08 [facility] (Rec: 08/27/18 12:19 [facility] [id number]) Hip Strength Hip Manual Muscle Testing Right Flexion (L2) 5 Normal Abduction 3+ Fair+ External Rotation 4- Good- Internal Rotation 4 Good Left Flexion (L2) 4+ Good+ Abduction 4- Good- External Rotation 4 Good Internal Rotation 4 Good Knee Strength Knee Manual Muscle Testing Right Flexion (S2) 4 Good Extension (L3) 4 Good Left Flexion (S2) 4 Good Extension (L3) 4 Good Ankle/Foot Strength Ankle and Foot Manual Muscle Testing Right Dorsiflexion (L4) 5 Normal Plantarflexion (S1) 4 Good Left Dorsiflexion (L4) 5 Normal Plantarflexion (S1) 5 Normal Comments PF tested seated PT-OP-Q Treatments Start: 07/11/18 11:48 Freq: Status: Active Protocol: Document 10/08/18 14:05 [facility] (Rec: 10/08/18 14:59 [facility] [id number]) Therapeutic Exercises Supine Exercises stretches Supine Exercise Name piriformis stretches Side bilateral Reps/Minutes 30 sec Standing Exercises hip flexor stretch Standing Exercise Name stretch Side bilateral Reps/Minutes 30 sec sidestep Standing Exercise Name side step Side bilateral Manual Therapy Treatment Soft Tissue Mobilization lumbar Body Location QL L Mobilization Type Rolling Intensity/Depth Superficial Body Position Sidelying Joint Mobilizations innominate Joint R Direction AP Grade II Body Position Hooklying Self-Care/Home Management Treatment Education Patient Education Body Mechanics Home Exercise Program Joint Protection Other Education Review of lifting mechanics & log roll, edu to do exercises (stretches) on painful days just stay in comfortable range . edu on avoiding back twisting and turning entire body. Edu on anatomy of SI and pelvis PT-OP-R Modalities Start: 07/11/18 11:48 Freq: Status: Active Protocol: Document 10/08/18 14:05 [facility] (Rec: 10/08/18 14:59 [facility] [id number]) Hot Pack/Cold Pack Treatment Cold Pack Location lumbar Patient Position Hooklying Treatment Duration (minutes) 10 PT-OP-T Assessment and Plan Start: 07/11/18 11:48 Freq: Status: Active Protocol: Document 10/08/18 14:05 [facility] (Rec: 10/08/18 14:59 [facility] [id number]) Physical Therapy Assessment Goals posture Short Term Goal (STG) Pt will present with good posture without cueing. STG Duration achieved Fdc Goal (LTG) Pt will have good postural awareness during gardening and will understand appropriate positioning. LTG Duration 10/27/18-improving understanding strength Short Term Goal (STG) Pt will be indep with HEP STG Duration achieved Fdc Goal (LTG) Pt will have 5/5 strength in LE and demonstrate good core control with 4/5 LPM in all planes LTG Duration 10/27/18 lifting Fdc Goal (LTG) Pt will be able to do lifting without LBP and with good mechanics without cueing. LTG Duration 10/27/18-improved Assessment Summary Assessment Pt has improved with ability to do lifting and postural mechanics without cueing, but is still working on self awareness. Strengthening was not worked on d/t issue of prolapsed bladder and cued pt about being careful with making sure she breaths when she is doing lifting and daily activities. Physical Therapy Plan Discharge Physical Therapy Discharge Comments Pt has prolapsed bladder issue which needs to be dealt with before she can cont core training. She has edu on how to work on balance & working on lifting mechanics, posture, and doing daily activtities with limiting bending or twisting
== END 2018-10-14 08:40 | disposition home or self-care (01) ==
LOC: PHYS 13:45
PROVIDERS: PCP Physician Assistant; Visit Provider Physician Assistant
DX: M54.41 Lumbago with sciatica, right side (principal)
CPT/HCPCS: 97010; 97110; 97112; 97140; 97162; 97530; 97535

== ENCOUNTER → 2018-10-17 12:48 | Outpatient (CLI) | payer OTHER, SELFPAY | PROVIDERS: PCP Internal Medicine; Visit Provider Internal Medicine | DX: N39.0 Urinary tract infection, site not specified (principal) | CPT/HCPCS: 87086 ==

== ENCOUNTER → 2018-10-24 06:43 | Outpatient (CLI) | payer OTHER, SELFPAY ==
--- NOTE | 2018-10-24 | DI.MRI.S_ITS ---
PROCEDURE: MR LUMBAR SPINE WO CON INDICATIONS: Sacrococcygeal disorders, not elsewhere classified TECHNIQUE: Noncontrast sagittal T1 spin echo and T2 fast echo, sagittal STIR, axial T1 and T2 fast spin echo through the lumbar spine. Axial and coronal T1 and STIR sequences of the sacrum are performed. COMPARISON: [facility], CR, XR LUMBAR SPINE 2 OR 3 VIEWS, 05/15/2017, 9:31. FINDINGS: Image quality: Excellent. Alignment and Curvature: 5 lumbar type vertebral bodies are present by plain film. There is mild, grade 1 anterolisthesis of L5 on S1. Bone Marrow: Marrow is of normal overall signal. No acute vertebral body compression fractures. There is moderate reactive signal within the endplates adjacent to the L5-S1 intervertebral disc. Mild reactive signal within the endplates adjacent to the L2-L3, L3-L4, and L4-L5 intervertebral discs. L5-S1 fusion has been performed with paired posterior rods and pedicle screws. Left L5-S1 pars interarticularis defect. There is mild subchondral marrow edema within the bilateral sacrum and iliac wings, adjacent to the sacroiliac joints. Spinal Cord: Conus medullaris terminates at the L1-L2 disc space level. Visualized cord demonstrates normal signal and size. Paraspinous Soft Tissues: No paravertebral masses. L1-L2: Mild disc height loss and desiccation. Mild diffuse disc bulge with small superimposed right paracentral protrusion. Mild facet and ligamentum flavum hypertrophy. Mild epidural lipomatosis. Mild canal stenosis. No foraminal stenosis. L2-L3: Mild disc height loss and desiccation. Mild diffuse disc bulge. Mild facet and ligament flavum hypertrophy. Mild epidural lipomatosis. Mild canal stenosis. No foraminal stenosis. L3-L4: Mild disc height loss. Moderate disc desiccation. Moderate diffuse disc bulge. Moderate facet and ligamentum flavum hypertrophy. Mild epidural lipomatosis. Mild canal stenosis. Mild bilateral foraminal stenosis. L4-L5: Moderate disc desiccation. Mild disc height loss. Mild diffuse disc bulge. Mild facet hypertrophy. Mild canal stenosis. No foraminal stenosis. L5-S1: Status post fusion. Left-sided pars defect. Mild residual disc osteophyte complex. Mild facet hypertrophy bilaterally. No significant canal stenosis. Moderate subarticular foraminal stenosis bilaterally. IMPRESSION: 1. Multilevel degenerative disc and facet disease, as well as ligamentum flavum hypertrophy and epidural lipomatosis. 2. L5-S1 fusion with no significant canal stenosis at the fused level. Grade 1 anterolisthesis of L5 on S1. Moderate bilateral L5-S1 foraminal stenosis. 3. Mild multilevel canal stenoses. 4. Bilateral sacroiliitis. Dictated by: Cain Woody M.D. on 10/24/2018 at 9:37 Approved by: Cain Woody M.D. on 10/24/2018 at 9:58
[2018-10-24 13:13] LABS: Bacteria Urine None Seen; RBC Urine None Seen (0-5/HPF); WBC Urine None Seen (0-5/HPF)
[2018-10-24 14:09] LABS: Appearance Urine UA CLEAR; Bilirubin Urine UA NEGATIVE (NEGATIVE); Color Urine UA YELLOW; Glucose Urine UA NEGATIVE (Negative); Ketones Urine UA NEGATIVE (NEGATIVE); Leukocyte Esterase Urine UA NEGATIVE (NEGATIVE); Nitrite Urine UA NEGATIVE (Negative); Occult Blood Urine UA NEGATIVE (Negative); Protein Urine UA NEGATIVE (Negative); Specific Gravity Urine UA <=1.005 (1.000-1.035); Urobilinogen Urine UA 0.2 E.U./dL (0.2); pH Urine UA 6.5 (4.5-8.0)
[2018-10-24 14:40] LABS: Squamous Epithelial Cell Urine None Seen (0-5/HPF)
[2018-10-24 14:41] LABS: Culture Indicated Urine Cult Not Indicated
== END ==
PROVIDERS: PCP Internal Medicine; Visit Provider Internal Medicine
DX: M53.3 Sacrococcygeal disorders, not elsewhere classified (principal); M51.36 Other intervertebral disc degeneration, lumbar region; M48.061 Spinal stenosis, lumbar region without neurogenic claudication; M48.07 Spinal stenosis, lumbosacral region; M46.1 Sacroiliitis, not elsewhere classified; M43.17 Spondylolisthesis, lumbosacral region; E88.2 Lipomatosis, not elsewhere classified; N39.0 Urinary tract infection, site not specified; R82.90 Unspecified abnormal findings in urine; Z98.1 Arthrodesis status
CPT/HCPCS: 72148; 81001; 87086

== ENCOUNTER → 2018-11-20 06:59 | Outpatient (CLI) | payer OTHER, SELFPAY ==
--- NOTE | 2018-11-20 | DI.MRI.S_ITS ---
PROCEDURE: MR PELVIS WO CON INDICATIONS: Sacrococcygeal disorders, not elsewhere classified. Sacroiliac joint pain, possible cystocele. TECHNIQUE: Noncontrast axial and coronal T1 spin echo and STIR through the lumbosacral plexus region. Optional contrast may be given, followed by axial and coronal T1 spin echo with fat saturation through the sacral plexus. COMPARISON: [facility], MR, MR LUMBAR SPINE WO CON, 10/24/2018, 7:06. [facility], CR, XR LUMBAR SPINE 2 OR 3 VIEWS, 05/15/2017, 9:31. [facility], CR, XR LUMBAR SPINE MIN 4V, 01/08/2018, 12:04. FINDINGS: Image quality: Excellent. Lumbosacral plexus: Superior to the piriformis muscles, the pre-plexal structures appear normal, including the lumbosacral trunk and S1 root. Just anterior to the piriformis muscles, the sacral plexus proper demonstrates normal morphology (lumbosacral trunk, S1 to S3 nerve roots). Inferior to the piriformis muscles, the sciatic nerves appear normal. Soft tissues: The piriformis muscles appear symmetric in size. No presacral masses. Rectum appears normal in caliber and wall thickness. No pathologic free pelvic fluid. No visualized adenopathy by size criteria. Bones: Marrow is normal in overall signal except areas where metal artifact from L5-S1 fusion procedure obscures clear visualization of the marrow space. The spine fusion devices were not present on the most recent plain film imaging 01/08/18 but were present on subsequent MR of the LS spine dated 10/24/18. No operative complication is seen. The sagittal imaging shows a L5-S1 interbody disc cage prosthesis, and there is mild edema along the L5-S1 borders, expected for postsurgical change. IMPRESSION: Interval L5-S1 discectomy and interbody disc prosthesis placement with posterior transverse pedicle screws and vertical fixation rods bilaterally crossing this level. No postoperative fluid collection is seen that would suggest seroma or infection. No postoperative hematoma is suspected. Scanning through the pelvis reveals no impingement on the lumbosacral plexus and no evidence of cystocele or other evidence of pelvic floor laxity. Dictated by: Misha Khan M.D. on 11/20/2018 at 13:01 Approved by: Misha Khan M.D. on 11/20/2018 at 13:09
== END ==
PROVIDERS: PCP Internal Medicine; Visit Provider Internal Medicine
DX: M53.3 Sacrococcygeal disorders, not elsewhere classified (principal)
CPT/HCPCS: 72195

== ENCOUNTER → 2019-01-08 08:47 | Outpatient (CLI) | payer OTHER, SELFPAY ==
[2019-01-08 10:13] LABS: Alanine Aminotransferase 25 IU/L (9-52); Albumin 4.2 g/dL (3.5-5.0); Albumin Globulin Ratio 1.6 (1.0-2.8); Alkaline Phosphatase 82 U/L (38-126); Aspartate Aminotransferase 25 IU/L (14-36); BUN Creatinine Ratio 13.8 (6-22); Bilirubin Total 0.7 mg/dL (0.2-1.3); Blood Urea Nitrogen 11 mg/dL (7-17); Calcium 9.5 mg/dL (8.4-10.2); Carbon Dioxide 27 mmol/L (22-32); Chloride 100 mmol/L (98-107); Cholesterol 187 mg/dL (140-199); Estimated Glomerular Filt Rate > 60.0 mL/min (>60); Globulin 2.6 g/dL (1.7-4.1); Glucose 98 mg/dL (80-110); HDL Cholesterol 71 mg/dL (40-60); HEMOLYSIS < 15 (0-50); LDL Cholesterol Calculated 100 mg/dL (<100); Potassium 4.3 mmol/L (3.4-5.1); Sodium 136 mmol/L (137-145); Total Protein 6.8 g/dL (6.3-8.2); Triglycerides 82 mg/dL (35-150)
[2019-01-08 10:17] LABS: High Sensitivity CRP - Cardiac 0.5 mg/L (1.0-3.0)
== END ==
PROVIDERS: PCP Internal Medicine; Visit Provider Internal Medicine
DX: E78.5 Hyperlipidemia, unspecified (principal)
CPT/HCPCS: 36415; 80053; 80061; 86140

== ENCOUNTER 2019-01-14 09:00 | Outpatient (RCR) | payer OTHER, SELFPAY ==
--- NOTE | 2018-12-19 16:19 | PT.OIE ---
Current Diagnoses Dislocation of sacroiliac and sacrococcygeal joint, initial encounter (12/12/18) Sprain of sacroiliac joint, initial encounter (12/12/18) Past Medical History (Last Updated 03/04/18 @ 10:56 by Samantha Mcnally) Actinic keratosis (Chronic 1997) Ankle pain (Chronic 1967) Anxiety (Chronic 2014) Cardiac arrhythmia (Chronic 2009) Cataract (Chronic 2007) Chronic back pain (Chronic 1995) Hayfever (Chronic 1995) Hypothyroidism (Chronic 1997) Nasal valve collapse (Chronic 2004) Osteoarthritis (Chronic 1995) Osteopenia (Chronic) Osteoporosis (Chronic 1995) Peripheral neuropathy (Chronic 2005) Pernicious anemia (Chronic 2000) Scoliosis (Chronic) Sleep apnea (Chronic 2011) Tinnitus (Chronic 1995) Urinary incontinence (Chronic 2015) Abnormal Pap smear of cervix (Resolved 1995) Ankle fracture (Resolved 1966) Cervical cancer (Resolved 1997) Cervical dysplasia (Resolved 1995) Chicken pox (Resolved 1955) Genital warts (Resolved 1995) HPV (human papilloma virus) infection (Resolved 1995) Head injury with loss of consciousness (Resolved 03/2015) Infection of hand due to bite (Resolved 1974) Measles (Resolved 1956) Mumps (Resolved 1955) Recurrent sinusitis (Resolved 1995) Skin cancer (Resolved 2007) Squamous cell carcinoma of skin of left cheek (Resolved 2007) Past Surgical History (Last Updated 03/04/18 @ 10:33 by Samantha Mcnally) Anesthesia complication (Resolved) History of hand surgery (Resolved 1974) History of surgery of head (Resolved 03/2015) Status post Mohs surgery (Resolved 1997) Status post hysterectomy (Resolved 1997) Provider Visit Care Team Role Provider Type Tiesha Mendoza MD Primary Care Provider Non-Staff Specialty: Internal Medicine Address: [address] [place] [address], [id number] Email: [email or web address] Attending Provider Non-Staff Specialty: Chiropractic Address: [address] [place] [address], [id number] Email: Physical Therapy Initial Evaluation PT-OP-A Visit Information Start: 12/17/18 12:38 Freq: Status: Active Protocol: Document 12/12/18 12:38 [facility] (Rec: 12/17/18 12:59 [facility] [email or web address]) Out-Patient Physical Therapy Visit Information Visit Information Visit Type Initial Evaluation Visit Note 73 year old female with grade III cystocele and she is scheduled for surgery the end of February. She is here for pre op strengthening prior to surgery. She also has a history of a lumbar fusion June 05 2018 Visit Start Time 09:00 Visit Stop Time 09:45 Total Visit Minutes 45 Visit Number 1 Evaluation Information Evaluation Date 01/11/19 PT-OP-B Current Condition Start: 12/17/18 12:38 Freq: Status: Active Protocol: Document 12/12/18 12:38 [facility] (Rec: 12/17/18 12:59 [facility] [email or web address]) Current Condition History of Current Condition Onset Date 2 years ago Current Complaints c/o prolapsed bladder and difficulty with fully voiding History of Current Condition 73 year old female referred for pelvic floor strengthening prior to her surgical repair scheduled the february . She reports she voids very small amounts but frequently and also has chronic constipation. She has a history of lumbar fusion May 2018 and she reports still having nerve root impingement from this. She has pain with laying supine and with any bending or twisting activities . Treatment Goals Patient/Caregiver Goals The patients goals are to become as strong as she can with her pelvic floor prior to surgery Prior Functional Status Baseline Function- ADL's Independent Baseline Function- Mobility Independent Current Functional Impairments (Reported) Functional Limitations- ADL's low back pain is severe and limits any lifting and doing anything besides light activities. Her bladder prolapse also makes her avoid any lifting due to increased pressure PT-OP-C Subjective Start: 12/17/18 12:38 Freq: Status: Active Protocol: Document 12/12/18 09:00 [facility] (Rec: 12/19/18 16:18 [facility] [email or web address]) OP-PT Pain Assessment Location LBP & RLE Pain Location Details LBP and pelvic floor Intensity 7 Scale Used Numeric (1 - 10) Description- Other goes higher w/catching of LB, Frequency Frequent Pain Aggravating Factors Position Activity Bending Lifting Home Pain Medication Use Pain Medications Used Yes Comments Pain Comments pt has pain from the low back and from her pelvic floor due to pelvic organ prolapse PT-OP-I Pelvic Floor Start: 12/17/18 12:38 Freq: Status: Active Protocol: Document 12/12/18 09:00 [facility] (Rec: 12/19/18 16:18 [facility] [email or web address]) Pelvic Floor Assessment Urine Pelvic Floor Surgery No Urinary Symptoms Urge Sensation Incomplete Emptying Falling Out Feeling/Heavy Pain Other Urinary Symptoms leakage is only with strong cough or sneeze but heavyness is present all day and there is pelvic pain symptoms present Leakage Size Small Leakage Cause Cough Urge Pelvic Clock Pelvic Clock Other external palpation only due to pt request, difficult to lift up through the perineum and decreased anterior pelvic floor and TA recruitment Prolapse Cystocele Grade 3 Contraction Ability Voluntary Contraction Weak Voluntary Relaxation Weak Muscle Endurance (Seconds) 4 Comments Pelvic Floor Comments Lilian did not wish to have a internal evaluation performed today. External assessment was performed only. It is very difficult for Lilian to activate her pelvic floor without a posterior pelvic tilt and guarding of the upper abdominals and gluteal musculature. She also has bladder irritants that may be contributing to her symptoms including 2 glasses of caffeinated beverages per day and 1 alcoholic beverage per day. PT-OP-J Posture/Palpation/Skin Start: 12/17/18 12:38 Freq: Status: Active Protocol: Document 12/12/18 09:00 [facility] (Rec: 12/19/18 16:18 [facility] [email or web address]) Posture Evaluation Position Standing Evaluation View Posterior Head/C-Spine Posture Flexed T-Spine Posture Increased Kyphosis Arm Posture (L) Internally Rotated (R) Internally Rotated Pelvis Posture Posterior Tilted Palpation Assessment Location Two Palpation Location low back and gluteals Palpation Findings Soft Tissue Tightness Spasm Muscle Guarding Tenderness One Palpation Location anterior pelvis and abdominal wall Palpation Findings Soft Tissue Tightness Muscle Guarding Palpation Details muscle guarding of the upper abdominal wall and pt tightens her upper abdominals when trying a pelvic floor facilitation PT-OP-L Special Tests Start: 12/17/18 12:38 Freq: Status: Active Protocol: Document 12/12/18 09:00 [facility] (Rec: 12/19/18 16:18 [facility] [email or web address]) Special Tests Lumbar Spine Special Tests Straight Leg Raise Test Results positive B for increased pain Doni Test Results positive PT-OP-M Strength Start: 12/17/18 12:38 Freq: Status: Active Protocol: Document 12/12/18 09:00 [facility] (Rec: 12/19/18 16:19 [facility] [email or web address]) Trunk Strength Trunk Manual Muscle Testing Testing Position Supine Flexion 3 Fair Core Stabilization poor core activation and stabilization Hip Strength Hip Manual Muscle Testing Right Abduction 3- Fair- External Rotation 3- Fair- Left Abduction 3- Fair- External Rotation 3 Fair PT-OP-Q Treatments Start: 12/17/18 12:38 Freq: Status: Active Protocol: Document 12/12/18 09:00 [facility] (Rec: 12/19/18 16:18 [facility] [email or web address]) Therapeutic Exercises Supine Exercises 2 Supine Exercise Name B hip ER with theraband Reps/Minutes 3 x 10 reps 1 Supine Exercise Name ball squeeze with pelvic floor contraction Side bilateral Reps/Minutes 10 reps holding 5-10 seconds pelvic floor Supine Exercise Name pelvic floor contraction Reps/Minutes hold x 5 seconds rest x 10 seconds Comments max cueing PT-OP-T Assessment and Plan Start: 12/17/18 12:38 Freq: Status: Active Protocol: Document 12/12/18 09:00 [facility] (Rec: 12/19/18 16:18 [facility] [email or web address]) Physical Therapy Assessment Rehab Potential Rehabilitation Potential Good Evaluation Complexity Number of Personal Factors/Comorbidities 1-2 Number of Body Systems Impaired 3 Clinical Presentation at Evaluation Evolving Impairments Impairments Activity Tolerance Functional Activities Pain Soft Tissue Mobility Strength Tone Other Impairments pelvic organ prolapse Goals Three Impairment Lilian lacks a home exercise program for pelvic floor strengthening Air Crew Officer Goal (LTG) Lilian is independent with a home exercise program for pelvic floor strengthening and she feels stronger going into surgery LTG Duration 6 weeks Two Impairment decreased hip strength contributing to pelvic floor weakness Residential Goal (LTG) Improve strengh of the hip rotators to help support the pelvic floor to 4/5 or better One Impairment decreased pelvic floor endurance Air Crew Officer Goal (LTG) Lilian is able to sustain a pelvic floor contraction x 10 seconds in supine LTG Duration 6 weeks posture Impairment pelvic floor weakness and pelvic organ prolapse Short Term Goal (STG) Lilian is able to facilitate a pelvic floor contraction without a posterior pelvic tilt and upper abdominal contraction STG Duration 4-5 weeks Residential Goal (LTG) Improve strength of the pe strength Impairment pelvic floor weakness Short Term Goal (STG) Lilian is able to facilitate a pelvic floor contraction without gluteal substitution and upper abdominal overactivation STG Duration 4 weeks Assessment Summary Assessment Lilian presents to physical therapy today with symptoms of pelvic organ prolapse and continued c/o LBP s/p fusion surgery 05/2018. She is limited in her ability to lay supine due to back pain and is very limited with bending and twisting activities or lifting over 10 #. She describes pelvic heavyness and pressure and often feels as if she can not fully empty her bladder. Lilian was not comfortable today with a internal examination of her pelvic floor so a external one was performed. She has difficulty with anterior pelvic floor recruitment and facilitation of the transverse abdominal wall. She also tends to perform a posterior pelvic tilt and tighten her upper abdominal wall when attempting to perform a pelvic floor squeeze. She is very weak throughout her hips and low back and has difficulty with functional movements. She is a good candidate for pelvic floor strengthening prior to her bladder lift surgery the end of February. Physical Therapy Plan Frequency and Duration Frequency of Treatment 2x/Week Duration of Treatment 8 weeks Plan of Care Start Date 12/12/18 Plan of Care End Date 02/06/19 Therapeutic Interventions Therapeutic Interventions Home Exercise Program Neuromuscular Re-education Patient/Caregiver Education Self-Care/Home Management Therapeutic Exercises Modalities Biofeedback Next Visit Focus/Plan Next Note Type Treatment Note Next Visit Plan if the patient feels comfortable then begin EMG biofeedback for pelvic floor facilitation and training, review HEP and progress pelvic floro strengthening as toelrated.
--- NOTE | 2018-12-19 16:20 | PT.OPPOC ---
Current Diagnoses Dislocation of sacroiliac and sacrococcygeal joint, initial encounter (12/12/18) Sprain of sacroiliac joint, initial encounter (12/12/18) Provider Visit Care Team Role Provider Type Tiesha Mendoza MD Primary Care Provider Non-Staff Specialty: Internal Medicine Address: [address] [place] [address], [facility] Email: [email or web address] Lisa Navarrete DC Attending Provider Non-Staff Specialty: Chiropractic Address: [address] [place] [address], [facility] Email: Plan Of Care PT-OP-T Assessment and Plan Start: 12/17/18 12:38 Freq: Status: Active Protocol: Document 12/12/18 09:00 [facility] (Rec: 12/19/18 16:18 [facility] [email or web address]) Physical Therapy Assessment Rehab Potential Rehabilitation Potential Good Evaluation Complexity Number of Personal Factors/Comorbidities 1-2 Number of Body Systems Impaired 3 Clinical Presentation at Evaluation Evolving Impairments Impairments Activity Tolerance Functional Activities Pain Soft Tissue Mobility Strength Tone Other Impairments pelvic organ prolapse Goals Three Impairment Lilian lacks a home exercise program for pelvic floor strengthening Mcc Goal (LTG) Lilian is independent with a home exercise program for pelvic floor strengthening and she feels stronger going into surgery LTG Duration 6 weeks Two Impairment decreased hip strength contributing to pelvic floor weakness Sewer Line Repairer Goal (LTG) Improve strength of the hip rotators to help support the pelvic floor to 4/5 or better One Impairment decreased pelvic floor endurance Mcc Goal (LTG) Lilian is able to sustain a pelvic floor contraction x 10 seconds in supine LTG Duration 6 weeks posture Impairment pelvic floor weakness and pelvic organ prolapse Short Term Goal (STG) Lilian is able to facilitate a pelvic floor contraction without a posterior pelvic tilt and upper abdominal contraction STG Duration 4-5 weeks Mcc Goal (LTG) Improve strength of the pe strength Impairment pelvic floor weakness Short Term Goal (STG) Lilian is able to facilitate a pelvic floor contraction without gluteal substitution and upper abdominal over activation STG Duration 4 weeks Assessment Summary Assessment Lilian presents to physical therapy today with symptoms of pelvic organ prolapse and continued c/o LBP s/p fusion surgery 05/2018. She is limited in her ability to lay supine due to back pain and is very limited with bending and twisting activities or lifting over 10 #. She describes pelvic heavyness and pressure and often feels as if she can not fully empty her bladder. Lilian was not comfortable today with a internal examination of her pelvic floor so a external one was performed. She has difficulty with anterior pelvic floor recruitment and facilitation of the transverse abdominal wall. She also tends to perform a posterior pelvic tilt and tighten her upper abdominal wall when attempting to perform a pelvic floor squeeze. She is very weak throughout her hips and low back and has difficulty with functional movements. She is a good candidate for pelvic floor strengthening prior to her bladder lift surgery the end of February. Physical Therapy Plan Frequency and Duration Frequency of Treatment 2x/Week Duration of Treatment 8 weeks Plan of Care Start Date 12/12/18 Plan of Care End Date 02/06/19 Therapeutic Interventions Therapeutic Interventions Home Exercise Program Neuromuscular Re-education Patient/Caregiver Education Self-Care/Home Management Therapeutic Exercises Modalities Biofeedback Next Visit Focus/Plan Next Note Type Treatment Note Next Visit Plan if the patient feels comfortable then begin EMG biofeedback for pelvic floor facilitation and training, review HEP and progress pelvic floor strengthening as tolerated. Plan of Care Dates Plan of Care Start Date 12/12/18 Plan of Care End Date 02/06/19 Please Sign and Return: I have reviewed this Plan of Care and certify that the skilled therapy services above are required to meet the patient?s needs. Physician Signature Date Printed Name and Credentials Clinical Instructor Signature Printed Name and Credentials
--- NOTE | 2018-12-31 13:02 | PT.OTN ---
Current Diagnoses Dislocation of sacroiliac and sacrococcygeal joint, initial encounter (12/31/18) Sprain of sacroiliac joint, initial encounter (12/31/18) Physical Therapy Treatment Note PT-OP-A Visit Information Start: 12/17/18 12:38 Freq: Status: Active Protocol: Document 12/31/18 12:40 [facility] (Rec: 12/31/18 13:02 [facility] [email or web address]) Out-Patient Physical Therapy Visit Information Visit Information Visit Type Treatment Note Visit Start Time 09:00 Visit Stop Time 09:45 Total Visit Minutes 45 Visit Number 2 Evaluation Information Evaluation Date 01/11/19 PT-OP-B Current Condition Start: 12/17/18 12:38 Freq: Status: Active Protocol: Document 12/12/18 12:38 [facility] (Rec: 12/17/18 12:59 [facility] [email or web address]) Current Condition History of Current Condition Onset Date 2 years ago Current Complaints c/o prolapsed bladder and difficulty with fully voiding History of Current Condition 73 year old female referred for pelvic floor strengthening prior to her surgical repair scheduled the end february . She reports she voids very small amounts but frequently and also has chronic constipation. She has a history of lumbar fusion May 2018 and she reports still having nerve root impingement from this. She has pain with laying supine and with any bending or twisting activities . Treatment Goals Patient/Caregiver Goals The patients goals are to become as strong as she can with her pelvic floor prior to surgery Prior Functional Status Baseline Function- ADL's Independent Baseline Function- Mobility Independent Current Functional Impairments (Reported) Functional Limitations- ADL's low back pain is severe and limits any lifting and doing anything besides light activities. Her bladder prolapse also makes her avoid any lifting due to increased pressure PT-OP-C Subjective Start: 12/17/18 12:38 Freq: Status: Active Protocol: Document 12/31/18 12:40 [facility] (Rec: 12/31/18 13:02 [facility] [email or web address]) OP-PT Subjective Patient Comments Patient Comments Lilian reports she has been working on her pelvic floor exercises. It is difficult for her to coordinate her breath with her pelvic floor contraction. She also reports she can tell that her low back discomfort is related to her pelvic organ prolapse. Gardening can make her sore in her low back and feel as if she is prolapsed more PT-OP-I Pelvic Floor Start: 12/17/18 12:38 Freq: Status: Active Protocol: Document 12/12/18 09:00 [facility] (Rec: 12/19/18 16:18 [facility] [email or web address]) Pelvic Floor Assessment Urine Pelvic Floor Surgery No Urinary Symptoms Urge Sensation Incomplete Emptying Falling Out Feeling/Heavy Pain Other Urinary Symptoms leakage is only with strong cough or sneeze but heavyness is present all day and there is pelvic pain symptoms present Leakage Size Small Leakage Cause Cough Urge Pelvic Clock Pelvic Clock Other external palpation only due to pt request, difficult to lift up through the perineum and decreased anterior pelvic floor and TA recruitment Prolapse Cystocele Grade 3 Contraction Ability Voluntary Contraction Weak Voluntary Relaxation Weak Muscle Endurance (Seconds) 4 Comments Pelvic Floor Comments Lilian did not wish to have a internal evaluation performed today. External assessment was performed only. It is very difficult for Lilian to activate her pelvic floor without a posterior pelvic tilt and guarding of the upper abdominals and gluteal musculature. She also has bladder irritants that may be contributing to her symptoms including 2 glasses of caffeinated beverages per day and 1 alcoholic beverage per day. PT-OP-J Posture/Palpation/Skin Start: 12/17/18 12:38 Freq: Status: Active Protocol: Document 12/12/18 09:00 [facility] (Rec: 12/19/18 16:18 [facility] [email or web address]) Posture Evaluation Position Standing Evaluation View Posterior Head/C-Spine Posture Flexed T-Spine Posture Increased Kyphosis Arm Posture (L) Internally Rotated (R) Internally Rotated Pelvis Posture Posterior Tilted Palpation Assessment Location Two Palpation Location low back and gluteals Palpation Findings Soft Tissue Tightness Spasm Muscle Guarding Tenderness One Palpation Location anterior pelvis and abdominal wall Palpation Findings Soft Tissue Tightness Muscle Guarding Palpation Details muscle guarding of the upper abdominal wall and pt tightens her upper abdominals when trying a pelvic floor facilitation PT-OP-L Special Tests Start: 12/17/18 12:38 Freq: Status: Active Protocol: Document 12/12/18 09:00 [facility] (Rec: 12/19/18 16:18 [facility] [email or web address]) Special Tests Lumbar Spine Special Tests Straight Leg Raise Test Results positive B for increased pain Doni Test Results positive PT-OP-M Strength Start: 12/17/18 12:38 Freq: Status: Active Protocol: Document 12/12/18 09:00 [facility] (Rec: 12/19/18 16:19 [facility] [email or web address]) Trunk Strength Trunk Manual Muscle Testing Testing Position Supine Flexion 3 Fair Core Stabilization poor core activation and stabilization Hip Strength Hip Manual Muscle Testing Right Abduction 3- Fair- External Rotation 3- Fair- Left Abduction 3- Fair- External Rotation 3 Fair PT-OP-Q Treatments Start: 12/17/18 12:38 Freq: Status: Active Protocol: Document 12/31/18 12:40 [facility] (Rec: 12/31/18 13:02 [facility] [email or web address]) Therapeutic Exercises Supine Exercises 4 Supine Exercise Name quick flicks in supine Reps/Minutes 2 second hold 4 second relax 3 Supine Exercise Name bridges with pelvic floor activation and ball squeeze 2 Supine Exercise Name B hip ER with theraband Reps/Minutes 3 x 10 reps 1 Supine Exercise Name ball squeeze with pelvic floor contraction Side bilateral Reps/Minutes 10 reps holding 5-10 seconds pelvic floor Supine Exercise Name pelvic floor contraction Reps/Minutes hold x 10 seconds rest x 10 seconds Self-Care/Home Management Treatment Education Patient Education Body Mechanics Home Exercise Program Posture Other Education educated Lilian on proper body mechanics for gardening and exhale with the pelvic floor when pulling a weed or lifting . a wedge was also tried for elevating the pelvis for home to take pressure off the pelvic floor PT-OP-T Assessment and Plan Start: 12/17/18 12:38 Freq: Status: Active Protocol: Document 12/31/18 12:40 [facility] (Rec: 12/31/18 13:02 [facility] [email or web address]) Physical Therapy Assessment Assessment Summary Assessment Lilian did not wish to try EMG biofeedback but she did well with manual cueing today. She felt pressure release with her hips elevated. I added in 10 second holds and she was able to do this. Physical Therapy Plan Frequency and Duration Frequency of Treatment 2x/Week Duration of Treatment 8 weeks Plan of Care Start Date 12/12/18 Plan of Care End Date 02/06/19 Therapeutic Interventions Therapeutic Interventions Home Exercise Program Neuromuscular Re-education Patient/Caregiver Education Self-Care/Home Management Therapeutic Exercises Modalities Biofeedback Next Visit Focus/Plan Next Note Type Treatment Note Next Visit Plan continue to progress pelvic floor stabilization and core stabilization, body mechanics training and home exercise program
--- NOTE | 2019-01-07 11:14 | PT.OTN ---
Current Diagnoses Dislocation of sacroiliac and sacrococcygeal joint, initial encounter (01/07/19) Sprain of sacroiliac joint, initial encounter (01/07/19) Physical Therapy Treatment Note PT-OP-A Visit Information Start: 12/17/18 12:38 Freq: Status: Active Protocol: Document 01/07/19 10:58 [facility] (Rec: 01/07/19 11:14 [facility] [email or web address]) Out-Patient Physical Therapy Visit Information Visit Information Visit Type Treatment Note Visit Start Time 09:00 Visit Stop Time 09:45 Total Visit Minutes 45 Visit Number 3 PT-OP-B Current Condition Start: 12/17/18 12:38 Freq: Status: Active Protocol: Document 12/12/18 12:38 [facility] (Rec: 12/17/18 12:59 [facility] [email or web address]) Current Condition History of Current Condition Onset Date 2 years ago Current Complaints c/o prolapsed bladder and difficulty with fully voiding History of Current Condition 73 year old female referred for pelvic floor strengthening prior to her surgical repair scheduled the end february . She reports she voids very small amounts but frequently and also has chronic constipation. She has a history of lumbar fusion May 2018 and she reports still having nerve root impingement from this. She has pain with laying supine and with any bending or twisting activities . Treatment Goals Patient/Caregiver Goals The patients goals are to become as strong as she can with her pelvic floor prior to surgery Prior Functional Status Baseline Function- ADL's Independent Baseline Function- Mobility Independent Current Functional Impairments (Reported) Functional Limitations- ADL's low back pain is severe and limits any lifting and doing anything besides light activities. Her bladder prolapse also makes her avoid any lifting due to increased pressure PT-OP-C Subjective Start: 12/17/18 12:38 Freq: Status: Active Protocol: Document 01/07/19 10:58 [facility] (Rec: 01/07/19 11:14 [facility] [email or web address]) OP-PT Subjective Patient Comments Patient Comments pt reports she know that certain gardening activities aggravate her left SI joint so she has been trying to limit how much she does and pace her self. She is working on her pevic floor exercises daily PT-OP-I Pelvic Floor Start: 12/17/18 12:38 Freq: Status: Active Protocol: Document 12/12/18 09:00 [facility] (Rec: 12/19/18 16:18 [facility] [email or web address]) Pelvic Floor Assessment Urine Pelvic Floor Surgery No Urinary Symptoms Urge Sensation Incomplete Emptying Falling Out Feeling/Heavy Pain Other Urinary Symptoms leakage is only with strong cough or sneeze but heavyness is present all day and there is pelvic pain symptoms present Leakage Size Small Leakage Cause Cough Urge Pelvic Clock Pelvic Clock Other external palpation only due to pt request, difficult to lift up through the perineum and decreased anterior pelvic floor and TA recruitment Prolapse Cystocele Grade 3 Contraction Ability Voluntary Contraction Weak Voluntary Relaxation Weak Muscle Endurance (Seconds) 4 Comments Pelvic Floor Comments Lilian did not wish to have a internal evaluation performed today. External assessment was performed only. It is very difficult for Lilian to activate her pelvic floor without a posterior pelvic tilt and guarding of the upper abdominals and gluteal musculature. She also has bladder irritants that may be contributing to her symptoms including 2 glasses of caffeinated beverages per day and 1 alcoholic beverage per day. PT-OP-J Posture/Palpation/Skin Start: 12/17/18 12:38 Freq: Status: Active Protocol: Document 12/12/18 09:00 [facility] (Rec: 12/19/18 16:18 [facility] [email or web address]) Posture Evaluation Position Standing Evaluation View Posterior Head/C-Spine Posture Flexed T-Spine Posture Increased Kyphosis Arm Posture (L) Internally Rotated (R) Internally Rotated Pelvis Posture Posterior Tilted Palpation Assessment Location Two Palpation Location low back and gluteals Palpation Findings Soft Tissue Tightness Spasm Muscle Guarding Tenderness One Palpation Location anterior pelvis and abdominal wall Palpation Findings Soft Tissue Tightness Muscle Guarding Palpation Details muscle guarding of the upper abdominal wall and pt tightens her upper abdominals when trying a pelvic floor facilitation PT-OP-L Special Tests Start: 12/17/18 12:38 Freq: Status: Active Protocol: Document 12/12/18 09:00 [facility] (Rec: 12/19/18 16:18 [facility] [email or web address]) Special Tests Lumbar Spine Special Tests Straight Leg Raise Test Results positive B for increased pain Doni Test Results positive PT-OP-M Strength Start: 12/17/18 12:38 Freq: Status: Active Protocol: Document 12/12/18 09:00 [facility] (Rec: 12/19/18 16:19 [facility] [email or web address]) Trunk Strength Trunk Manual Muscle Testing Testing Position Supine Flexion 3 Fair Core Stabilization poor core activation and stabilization Hip Strength Hip Manual Muscle Testing Right Abduction 3- Fair- External Rotation 3- Fair- Left Abduction 3- Fair- External Rotation 3 Fair PT-OP-Q Treatments Start: 12/17/18 12:38 Freq: Status: Active Protocol: Document 01/07/19 10:58 [facility] (Rec: 01/07/19 11:14 [facility] [email or web address]) Therapeutic Exercises Supine Exercises 5 Supine Exercise Name pelvic floor elevator exercise Reps/Minutes x 5 reps 4 Supine Exercise Name quick flicks in supine Reps/Minutes 2 second hold 4 second relax 1 Supine Exercise Name ball squeeze with pelvic floor contraction Side bilateral Reps/Minutes 10 reps holding 5-10 seconds pelvic floor Supine Exercise Name pelvic floor contraction Reps/Minutes hold x 10 seconds rest x 10 seconds march Supine Exercise Name TA with marching Reps/Minutes x 10 reps figure 4 stretch Supine Exercise Name piriformis stretch Reps/Minutes hold 30 + seconds each side Self-Care/Home Management Treatment Education Patient Education Home Exercise Program Joint Protection Other Education worked on progression of SI joint relaxion when coming in from gardening. letting her Si joint settle prior to added in her stabilization exercises. Using PT-OP-T Assessment and Plan Start: 12/17/18 12:38 Freq: Status: Active Protocol: Document 01/07/19 10:58 [facility] (Rec: 01/07/19 11:14 [facility] [email or web address]) Physical Therapy Assessment Assessment Summary Assessment Lilian is doing really well with her home exercise program and is bracing correctly now with her pelvic floor. I did progress today with more dynamic TA stabilization exercises and this was more of a challange for her. Physical Therapy Plan Frequency and Duration Frequency of Treatment 2x/Week Duration of Treatment 8 weeks Plan of Care Start Date 12/12/18 Plan of Care End Date 02/06/19 Therapeutic Interventions Therapeutic Interventions Home Exercise Program Neuromuscular Re-education Patient/Caregiver Education Self-Care/Home Management Therapeutic Exercises Modalities Biofeedback Next Visit Focus/Plan Next Note Type Treatment Note Next Visit Plan continue to progress pelvic floor stabilization and core stabilization, body mechanics training and home exercise program
--- NOTE | 2019-01-14 20:06 | PT.OTN ---
Current Diagnoses Dislocation of sacroiliac and sacrococcygeal joint, initial encounter (01/14/19) Sprain of sacroiliac joint, initial encounter (01/14/19) Physical Therapy Treatment Note PT-OP-A Visit Information Start: 12/17/18 12:38 Freq: Status: Active Protocol: Document 01/14/19 09:00 [facility] (Rec: 01/14/19 20:06 [facility] [email or web address]) Out-Patient Physical Therapy Visit Information Visit Information Visit Type Treatment Note Visit Start Time 09:00 Visit Stop Time 09:45 Total Visit Minutes 45 Visit Number 4 Evaluation Information Evaluation Date 01/11/19 PT-OP-B Current Condition Start: 12/17/18 12:38 Freq: Status: Active Protocol: Document 12/12/18 12:38 [facility] (Rec: 12/17/18 12:59 [facility] [email or web address]) Current Condition History of Current Condition Onset Date 2 years ago Current Complaints c/o prolapsed bladder and difficulty with fully voiding History of Current Condition 73 year old female referred for pelvic floor strengthening prior to her surgical repair scheduled the end of February . She reports she voids very small amounts but frequently and also has chronic constipation. She has a history of lumbar fusion May 2018 and she reports still having nerve root impingement from this. She has pain with laying supine and with any bending or twisting activities . Treatment Goals Patient/Caregiver Goals The patients goals are to become as strong as she can with her pelvic floor prior to surgery Prior Functional Status Baseline Function- ADL's Independent Baseline Function- Mobility Independent Current Functional Impairments (Reported) Functional Limitations- ADL's low back pain is severe and limits any lifting and doing anything besides light activities. Her bladder prolapse also makes her avoid any lifting due to increased pressure PT-OP-C Subjective Start: 12/17/18 12:38 Freq: Status: Active Protocol: Document 01/14/19 09:00 [facility] (Rec: 01/14/19 20:06 [facility] [email or web address]) OP-PT Subjective Patient Comments Patient Comments Lilian reports she feels comfortable with her home exercise program. She is trying to pace her self with gardening so decrease SI strain. Her surgery is scheduled for February PT-OP-I Pelvic Floor Start: 12/17/18 12:38 Freq: Status: Active Protocol: Document 12/12/18 09:00 [facility] (Rec: 12/19/18 16:18 [facility] [email or web address]) Pelvic Floor Assessment Urine Pelvic Floor Surgery No Urinary Symptoms Urge Sensation Incomplete Emptying Falling Out Feeling/Heavy Pain Other Urinary Symptoms leakage is only with strong cough or sneeze but heavyness is present all day and there is pelvic pain symptoms present Leakage Size Small Leakage Cause Cough Urge Pelvic Clock Pelvic Clock Other external palpation only due to pt request, difficult to lift up through the perineum and decreased anterior pelvic floor and TA recruitment Prolapse Cystocele Grade 3 Contraction Ability Voluntary Contraction Weak Voluntary Relaxation Weak Muscle Endurance (Seconds) 4 Comments Pelvic Floor Comments Lilian did not wish to have a internal evaluation performed today. External assessment was performed only. It is very difficult for Lilian to activate her pelvic floor without a posterior pelvic tilt and guarding of the upper abdominals and gluteal musculature. She also has bladder irritants that may be contributing to her symptoms including 2 glasses of caffeinated beverages per day and 1 alcoholic beverage per day. PT-OP-J Posture/Palpation/Skin Start: 12/17/18 12:38 Freq: Status: Active Protocol: Document 12/12/18 09:00 [facility] (Rec: 12/19/18 16:18 [facility] [email or web address]) Posture Evaluation Position Standing Evaluation View Posterior Head/C-Spine Posture Flexed T-Spine Posture Increased Kyphosis Arm Posture (L) Internally Rotated (R) Internally Rotated Pelvis Posture Posterior Tilted Palpation Assessment Location Two Palpation Location low back and gluteals Palpation Findings Soft Tissue Tightness Spasm Muscle Guarding Tenderness One Palpation Location anterior pelvis and abdominal wall Palpation Findings Soft Tissue Tightness Muscle Guarding Palpation Details muscle guarding of the upper abdominal wall and pt tightens her upper abdominals when trying a pelvic floor facilitation PT-OP-L Special Tests Start: 12/17/18 12:38 Freq: Status: Active Protocol: Document 12/12/18 09:00 [facility] (Rec: 12/19/18 16:18 [facility] [email or web address]) Special Tests Lumbar Spine Special Tests Straight Leg Raise Test Results positive B for increased pain Doni Test Results positive PT-OP-M Strength Start: 12/17/18 12:38 Freq: Status: Active Protocol: Document 12/12/18 09:00 [facility] (Rec: 12/19/18 16:19 [facility] [email or web address]) Trunk Strength Trunk Manual Muscle Testing Testing Position Supine Flexion 3 Fair Core Stabilization poor core activation and stabilization Hip Strength Hip Manual Muscle Testing Right Abduction 3- Fair- External Rotation 3- Fair- Left Abduction 3- Fair- External Rotation 3 Fair PT-OP-Q Treatments Start: 12/17/18 12:38 Freq: Status: Active Protocol: Document 01/14/19 09:00 [facility] (Rec: 01/14/19 20:06 [facility] [email or web address]) Therapeutic Exercises Supine Exercises 6 Supine Exercise Name TA stabilization with marches Reps/Minutes x 10 reps 5 Supine Exercise Name pelvic floor elevator exercise Reps/Minutes x 5 reps 4 Supine Exercise Name quick flicks in supine Reps/Minutes 2 second hold 4 second relax 3 Supine Exercise Name bridges with pelvic floor activation and ball squeeze 2 Supine Exercise Name B hip ER with theraband Reps/Minutes 3 x 10 reps 1 Supine Exercise Name ball squeeze with pelvic floor contraction Side bilateral Reps/Minutes 10 reps holding 5-10 seconds stretches Supine Exercise Name single knee to chest pelvic floor Supine Exercise Name pelvic floor contraction Reps/Minutes hold x 10 seconds rest x 10 seconds Self-Care/Home Management Treatment Education Patient Education Home Exercise Program Joint Protection Other Education SI belt stabilization PT-OP-T Assessment and Plan Start: 12/17/18 12:38 Freq: Status: Active Protocol: Document 01/14/19 09:00 [facility] (Rec: 01/14/19 20:06 [facility] [email or web address]) Physical Therapy Assessment Goals Three Impairment Lilian lacks a home exercise program for pelvic floor strengthening [employer] Goal (LTG) Lilian is independent with a home exercise program for pelvic floor strengthening and she feels stronger going into surgery GOAL MET LTG Duration 6 weeks Two Impairment decreased hip strength contributing to pelvic floor weakness [employer] Goal (LTG) Improve strengh of the hip rotators to help support the pelvic floor to 4/5 or better GOOD PROGRESS One Impairment decreased pelvic floor endurance Senior Care Goal (LTG) Lilian is able to sustain a pelvic floor contraction x 10 seconds in supine GOAL MET LTG Duration 6 weeks Assessment Summary Assessment Lilian has made good progress with pelvic floor strengthening and is independent with her home exercise program. She is also able to sustain her pelvic floor contraction for 10 seconds now. I did try a SI belt on Lilian today to help with stabilization while gardening and she really liked the belt. She may benefit from using a belt for activities such as gardening. At this point she will be discharged from PT until after she has her surgery. I would be happy to work on pelvic floor strengthening with her post surgery if needed Physical Therapy Plan Discharge Physical Therapy Discharge Reasons Goals Met Discharge Comments Pt is independent with her home exercise program.
== END 2019-02-19 16:28 | disposition home or self-care (01) ==
LOC: PHYS 09:00
PROVIDERS: PCP Internal Medicine; Visit Provider Chiropractor
DX: S33.2XXA Dislocation of sacroiliac and sacrococcygeal joint, initial encounter (principal); S33.6XXA Sprain of sacroiliac joint, initial encounter
CPT/HCPCS: 97110; 97161; 97535

== ENCOUNTER → 2019-01-31 10:12 | Outpatient (CLI) | payer OTHER, SELFPAY ==
[2019-01-31 12:04] LABS: Free T4, Direct Thyroxine 1.92 ng/dL (0.78-2.19)
[2019-01-31 12:18] LABS: Thyroid Stimulating Hormone 0.19 uIU/mL (0.47-4.68)
[2019-02-04 16:04] LABS: Triiodothyronine T3 Total 98 ng/dL (76-181)
== END ==
PROVIDERS: PCP Internal Medicine; Visit Provider Internal Medicine
DX: E03.9 Hypothyroidism, unspecified (principal)
CPT/HCPCS: 36415; 84439; 84443; 84480

== ENCOUNTER → 2019-04-02 07:52 | Outpatient (CLI) | payer OTHER, SELFPAY ==
[2019-04-02 08:28] LABS: HEMOLYSIS < 15 (0-50)
[2019-04-02 08:37] LABS: Alanine Aminotransferase 33 IU/L (9-52); Albumin 4.6 g/dL (3.5-5.0); Albumin Globulin Ratio 1.6 (1.0-2.8); Alkaline Phosphatase 85 U/L (38-126); Aspartate Aminotransferase 35 IU/L (14-36); Bilirubin Total 0.7 mg/dL (0.2-1.3); Blood Urea Nitrogen 12 mg/dL (7-17); Calcium 9.1 mg/dL (8.4-10.2); Carbon Dioxide 27 mmol/L (22-32); Chloride 97 mmol/L (98-107); Estimated Glomerular Filt Rate > 60.0 mL/min (>60); Globulin 2.9 g/dL (1.7-4.1); Glucose 100 mg/dL (80-110); Potassium 4.2 mmol/L (3.4-5.1); Sodium 133 mmol/L (137-145); Total Protein 7.5 g/dL (6.3-8.2)
[2019-04-02 11:29] LABS: Thyroid Stimulating Hormone 3.57 uIU/mL (0.47-4.68)
[2019-04-03 15:16] LABS: Cortisol AM (Before 10AM) 8.97 ug/dL (4.46-22.7)
[2019-04-03 16:29] LABS: Free T3, Triiodothyronine Free 3.46 pg/mL (2.77-5.27)
[2019-04-05 10:30] LABS: Adrenocorticotropic Hormone 10 pg/mL (6-50)
== END ==
PROVIDERS: PCP Internal Medicine; Visit Provider Internal Medicine Endocrinology, Diabetes & Metabolism
DX: E03.9 Hypothyroidism, unspecified (principal); R63.4 Abnormal weight loss
CPT/HCPCS: 36415; 80053; 82024; 82533; 84439; 84443; 84481

== ENCOUNTER → 2019-06-17 07:28 | Outpatient (CLI) | payer OTHER, SELFPAY ==
--- NOTE | 2019-06-17 07:39 | DI.CT.S_ITS ---
PROCEDURE: CT SOFT TISSUE NECK WO CON INDICATIONS: DYSPHAGIA TECHNIQUE: Non-contrast 3.0 mm axial sections acquired from the sella to the aortic arch. Additional oblique axial 3.0 mm sections acquired through the pharynx. 3 mm thick coronal and sagittal reformats were generated. For radiation dose reduction, the following was used: automated exposure control. COMPARISON: None. FINDINGS: Image quality: There is streak artifact from the dental hardware, which is improved with streak reducing algorithm. Lymph nodes: No enlarged lymph nodes seen throughout the neck. No enlarged lymph nodes can be seen at the area of palpable abnormality on the right. Vessels: Non-opacified vessels appear normal in caliber. Neck spaces: Scrutiny is given to the oral cavity and to the right aspect of the hard palate near the retrotracheal area. No significant CT abnormality can be seen at this site. The oropharynx, nasopharynx, and pharynx demonstrate no mucosal lesions. The vocal cords, false vocal cords, pyriform sinuses, epiglottis, vallecula, and tongue base all appear normal. Extramucosal spaces appear unremarkable. Glands: The parotid and submandibular glands appear normal, without stones. Thyroid gland is small in size. Miscellaneous: Visualized brain and orbits appear normal. Lung apices appear clear. Superficial soft tissues appear normal. Moderate to prominent cervical spine degenerative changes are seen. IMPRESSION: No significant CT abnormality can be seen, including involving the right oral cavity. No enlarged lymph nodes can be seen at the area of palpable abnormality. Incidental note is made of: Cervical spine degenerative change Dictated by: Manuel Villafuerte M.D. on 06/17/2019 at 9:47 Approved by: Manuel Villafuerte M.D. on 06/17/2019 at 9:52
== END ==
PROVIDERS: PCP Internal Medicine; Visit Provider Internal Medicine
DX: R13.10 Dysphagia, unspecified (principal); M47.812 Spondylosis without myelopathy or radiculopathy, cervical region
CPT/HCPCS: 70490

== ENCOUNTER → 2020-03-17 07:55 | Outpatient (CLI) | payer OTHER, SELFPAY ==
[2020-03-17 09:48] LABS: Add Manual Diff / Slide Review NO; Basophils Absolute Auto 0 /uL (0-100); Basophils Percent Auto 0.8 % (0-2); Eosinophils Absolute Auto 200 /uL (0-450); Eosinophils Percent Auto 2.8 % (2-4); Hemoglobin 12.6 g/dL (12.0-16.0); Lymphocytes Absolute Auto 2700 /uL (1100-4500); Lymphocytes Percent Auto 47.9 % (25-40); Mean Corpuscular HGB Conc 33.1 % (30-36); Mean Corpuscular Hemoglobin 30.7 PG (26-34); Mean Corpuscular Volume 92.7 fL (80-100); Monocytes Absolute Auto 600 /uL (0-900); Neutrophils Absolute Auto 2200 /uL (1500-7000); Neutrophils Percent Auto 38.5 % (50-75); Platelet Count 272 X10^3/uL (150-400); Red Cell Distribution Width 13.9 % (11.6-14.8); White Blood Cell Count 5.7 X10^3/uL (4.5-11.0)
[2020-03-17 10:02] LABS: Alanine Aminotransferase 28 IU/L (<35); Albumin 4.3 g/dL (3.5-5.0); Albumin Globulin Ratio 1.5 (1.0-2.8); Alkaline Phosphatase 91 U/L (38-126); Aspartate Aminotransferase 29 IU/L (14-36); BUN Creatinine Ratio 15.9 (6-22); Bilirubin Total 0.5 mg/dL (0.2-1.3); Blood Urea Nitrogen 13 mg/dL (7-17); Calcium 9.1 mg/dL (8.4-10.2); Carbon Dioxide 27 mmol/L (22-32); Chloride 103 mmol/L (98-107); Cholesterol 221 mg/dL (140-199); Estimated Glomerular Filt Rate > 60.0 mL/min (>60); Globulin 2.9 g/dL (1.7-4.1); Glucose 94 mg/dL (80-110); HDL Cholesterol 63 mg/dL (40-60); HEMOLYSIS < 15 (0-50); LDL Cholesterol Calculated 140 mg/dL (<100); Potassium 4.2 mmol/L (3.4-5.1); Sodium 134 mmol/L (137-145); Total Protein 7.2 g/dL (6.3-8.2); Triglycerides 92 mg/dL (35-150)
[2020-03-17 10:04] LABS: C-Reactive Protein Quant < 0.5 mg/dL (<1.0)
[2020-03-17 10:23] LABS: Vitamin D 25 Hydroxy (D3) 38.7 ng/mL (30.0-100.0)
[2020-03-17 10:37] LABS: Erythrocyte Sedimentation Rate 8 MM/HR (0-20); TSH w/ Reflex to FT4 1.62 uIU/mL (0.47-4.68)
[2020-03-17 10:49] LABS: Vitamin B12 > 1000 pg/mL (239-931)
== END ==
PROVIDERS: PCP Internal Medicine; Referring Provider Internal Medicine; Visit Provider Internal Medicine
DX: E78.5 Hyperlipidemia, unspecified (principal); M46.1 Sacroiliitis, not elsewhere classified; E03.9 Hypothyroidism, unspecified; D51.0 Vitamin B12 deficiency anemia due to intrinsic factor deficiency; E55.9 Vitamin D deficiency, unspecified
CPT/HCPCS: 36415; 80053; 80061; 82306; 82607; 84443; 85025; 85651; 86140

== ENCOUNTER → 2020-09-23 09:36 | Outpatient (CLI) | payer OTHER, SELFPAY ==
[2020-09-23 10:31] LABS: Cholesterol 247 mg/dL (140-199); HDL Cholesterol 76 mg/dL (40-60); LDL Cholesterol Calculated 147 mg/dL (<100); Triglycerides 122 mg/dL (35-150)
[2020-09-23 10:35] LABS: High Sensitivity CRP - Cardiac 0.6 mg/L (1.0-3.0)
[2020-09-23 11:06] LABS: Free T3, Triiodothyronine Free 2.89 pg/mL (2.77-5.27); Free T4, Direct Thyroxine 1.89 ng/dL (0.78-2.19)
[2020-09-23 11:20] LABS: TSH w/ Reflex to FT4 1.58 uIU/mL (0.47-4.68)
== END ==
PROVIDERS: PCP Family Medicine; Referring Provider Family Medicine; Visit Provider Family Medicine
DX: E03.9 Hypothyroidism, unspecified (principal); E78.5 Hyperlipidemia, unspecified
CPT/HCPCS: 36415; 80061; 84439; 84443; 84481; 86140

== ENCOUNTER → 2020-09-24 09:47 | Outpatient (CLI) | payer OTHER, SELFPAY ==
[2020-09-27 10:47] LABS: Fecal Immunochemical Test Negative (Negative)
== END ==
PROVIDERS: PCP Family Medicine; Referring Provider Family Medicine; Visit Provider Family Medicine
DX: Z12.11 Encounter for screening for malignant neoplasm of colon (principal)
CPT/HCPCS: 82274

== ENCOUNTER → 2020-10-06 09:36 | Outpatient (CLI) | payer OTHER, SELFPAY | PROVIDERS: PCP Family Medicine; Referring Provider Family Medicine; Visit Provider Family Medicine | DX: M81.0 Age-related osteoporosis without current pathological fracture (principal); Z78.0 Asymptomatic menopausal state; E78.5 Hyperlipidemia, unspecified; E03.9 Hypothyroidism, unspecified; Z90.722 Acquired absence of ovaries, bilateral; Z82.62 Family history of osteoporosis | CPT/HCPCS: 77080 ==

== ENCOUNTER → 2021-04-27 07:22 | Outpatient (CLI) | payer OTHER, SELFPAY ==
[2021-04-27 08:23] LABS: Add Manual Diff / Slide Review NO; Basophils Absolute Auto 100 /uL (0-100); Basophils Percent Auto 0.9 % (0-2); Eosinophils Absolute Auto 100 /uL (0-450); Eosinophils Percent Auto 2.1 % (2-4); Hematocrit 38.9 % (36-46); Hemoglobin 12.7 g/dL (12.0-16.0); Lymphocytes Absolute Auto 3000 /uL (1100-4500); Lymphocytes Percent Auto 50.7 % (25-40); Mean Corpuscular HGB Conc 32.7 % (30-36); Mean Corpuscular Hemoglobin 30.1 PG (26-34); Monocytes Absolute Auto 500 /uL (0-900); Monocytes Percent Auto 8.6 % (3-14); Neutrophils Absolute Auto 2300 /uL (1500-7000); Neutrophils Percent Auto 37.7 % (50-75); Platelet Count 216 X10^3/uL (150-400); Red Blood Cell Count 4.22 X10^6/uL (4.0-5.2); Red Cell Distribution Width 14.4 % (11.6-14.8)
[2021-04-27 08:48] LABS: Alanine Aminotransferase 22 IU/L (<35); Albumin 4.3 g/dL (3.5-5.0); Albumin Globulin Ratio 1.7 (1.0-2.8); Alkaline Phosphatase 69 U/L (38-126); Aspartate Aminotransferase 29 IU/L (14-36); BUN Creatinine Ratio 17.9 (6-22); Bilirubin Total 0.5 mg/dL (0.2-1.3); Blood Urea Nitrogen 14 mg/dL (7-17); C-Reactive Protein Quant < 0.5 mg/dL (<1.0); Calcium 9.3 mg/dL (8.4-10.2); Carbon Dioxide 24 mmol/L (22-32); Chloride 105 mmol/L (98-107); Cholesterol 204 mg/dL (140-199); Estimated Glomerular Filt Rate > 60.0 mL/min (>60); Globulin 2.5 g/dL (1.7-4.1); Glucose 98 mg/dL (80-110); HDL Cholesterol 77 mg/dL (40-60); HEMOLYSIS < 15 (0-50); LDL Cholesterol Calculated 109 mg/dL (<100); Potassium 4.3 mmol/L (3.4-5.1); Sodium 137 mmol/L (137-145); Total Protein 6.8 g/dL (6.3-8.2); Triglycerides 90 mg/dL (35-150)
[2021-04-27 08:52] LABS: Vitamin D 25 Hydroxy (D3) 40.4 ng/mL (30.0-100.0)
[2021-04-27 09:06] LABS: TSH w/ Reflex to FT4 2.76 uIU/mL (0.47-4.68)
[2021-04-27 09:32] LABS: Vitamin B12 Reflex MMA if <400 900 pg/mL (239-931)
[2021-04-27 11:05] LABS: Creatinine Urine Random 34.9 mg/dL
[2021-04-27 11:13] LABS: Microalbumin Urine Random < 0.6 mg/dL (0-1.6)
[2021-04-28 04:08] LABS: Ceruloplasmin 28.6 mg/dL (19.0-39.0)
== END ==
PROVIDERS: PCP Family Medicine; Referring Provider Family Medicine; Visit Provider Family Medicine
DX: C50.919 Malignant neoplasm of unspecified site of unspecified female breast (principal); D51.0 Vitamin B12 deficiency anemia due to intrinsic factor deficiency; E03.9 Hypothyroidism, unspecified; E78.2 Mixed hyperlipidemia; M43.00 Spondylolysis, site unspecified; M43.10 Spondylolisthesis, site unspecified; R94.5 Abnormal results of liver function studies
CPT/HCPCS: 36415; 80053; 80061; 82043; 82306; 82390; 82570; 82607; 84443; 85025; 86140

== ENCOUNTER → 2021-05-03 07:52 | Outpatient (CLI) | payer OTHER, SELFPAY ==
--- NOTE | 2021-05-03 08:11 | DI.US.S_ITS ---
LIMITED ULTRASOUND OF LEFT BREAST: 05/03/2021 CLINICAL: Palpable left breast lump. Comparison is made to exams dated: 06/03/2013 mammogram, 05/01/2012 mammogram - [facility], 03/11/20[address] ultrasound - [facility], 11/19/2020 ultrasound, and 11/09/2020 ultrasound - [facility] [place]. Color flow and real-time ultrasound of the left breast 3-4 o'clock region were performed. Merida scale images of the real-time examination were reviewed. There is a 13.3 cm x 3.5 cm x 1.9 cm thick walled area of previous seroma with a small amount of internal fluid in the left breast at 4 o'clock middle depth 3 cm from the nipple. This irregular fluid collection is hypoechoic with internal echoes. This abnormality is decreased in size and correlates with previous ultrasound findings and known prior lumpectomy. Color flow imaging demonstrates that there is no increase in vascularity. IMPRESSION: BENIGN The post surgical seroma in the left breast has decreased in fluid component since the prior study and aspiration is not felt to be therapeutic at this time. Mammogram screening schedule per oncology is recommended. Findings and recommendations were conveyed to the patient at time of exam. This exam was interpreted at Station ID: [id number]. Electronically Signed By: Yvonne cedeño/:05/03/2021 12:10:21 letter sent: Normal Exam Ultrasound BI-RADS: 2 Benign
== END ==
PROVIDERS: PCP Family Medicine; Referring Provider Internal Medicine Hematology & Oncology; Visit Provider Internal Medicine Hematology & Oncology
DX: L76.34 Postprocedural seroma of skin and subcutaneous tissue following other procedure
CPT/HCPCS: 76642

== ENCOUNTER → 2021-08-19 10:52 | Outpatient (CLI) | payer OTHER, SELFPAY ==
--- NOTE | 2021-08-19 10:53 | DI.RAD.S_ITS ---
PROCEDURE: XR CERVICAL SPINE 2V OR 3V INDICATIONS: chronic neck pain, radiculopathy TECHNIQUE: 3 view(s) of the cervical spine were acquired. COMPARISON: None. FINDINGS: Bones: No fractures or dislocations to the C7 level. There is moderate degenerative change most pronounced at C5-C6 demonstrable by intervertebral disc space height loss, osteophytosis, and uncovertebral joint hypertrophy. There is minimal anterolisthesis of C4 on C5. The lateral masses of C1 appear intact on the odontoid view. No suspicious bony lesions. Soft tissues: No prevertebral soft tissue swelling. IMPRESSION: Moderate degenerative change in the cervical spine. Minimal anterolisthesis of C4 on C5. Dictated by: Pramod Schultz M.D. on 08/19/2021 at 12:02 Approved by: Pramod Schultz M.D. on 08/19/2021 at 12:03
== END ==
PROVIDERS: PCP Family Medicine; Referring Provider Family Medicine; Visit Provider Family Medicine
DX: M47.22 Other spondylosis with radiculopathy, cervical region (principal); M54.2 Cervicalgia
CPT/HCPCS: 72040

== ENCOUNTER → 2021-09-02 08:21 | Outpatient (CLI) | payer OTHER, SELFPAY ==
--- NOTE | 2021-09-02 08:24 | DI.MRI.S_ITS ---
PROCEDURE: MR LUMBAR SPINE WO CON INDICATIONS: chronic neck and low back pain and right-sided radiculopathy TECHNIQUE: Noncontrast sagittal T1 spin echo and T2 fast echo, sagittal STIR, and T2 fast spin echo through the lumbar spine. In cases with scoliosis, additional coronal T2 fast spin echo may be performed. COMPARISON: [facility], MR, MR CERVICAL SPINE WO CON, 09/02/2021, 8:49. [facility], MR, MR LUMBAR SPINE WO CON, 10/24/2018, 7:06. FINDINGS: Image quality: This examination is limited by involuntary motion artifact. Alignment and Curvature: There is mild grade 1 L5-S1 anterolisthesis. Bone Marrow: Marrow is of normal overall signal. No acute vertebral body compression fractures. Spinal Cord: Conus medullaris terminates at the L1 level. Visualized cord demonstrates normal signal and size. Paraspinous Soft Tissues: No paravertebral masses. T11-T12: Mild loss of disc height is seen. Loss of disc signal is seen. No significant neural foraminal or central canal narrowing can be seen. T12-L1: No significant abnormality is seen. L1-L2: The disc height and disc signal are relatively well preserved. Mild disc bulge is seen, with a mild central/right disc protrusion. No significant neural foraminal narrowing is seen. Mild central canal narrowing is seen. L2-L3: There is no significant abnormality seen at this level. L3-L4: Mild loss of disc height is seen. Loss of disc signal is seen. Moderate generalized disc bulge is seen. There is a superimposed central disc protrusion. Moderate facet joint hypertrophy is seen. Associated hypertrophy of the ligamentum flavum can be seen. Moderate bilateral neural foraminal narrowing can be seen, left worse than right. Moderate central canal narrowing is seen. These imaging findings have progressed compared to the prior study. L4-L5: The disc height is well-preserved. Loss of disc signal is seen at this level. Mild to moderate disc bulge is seen, with a central disc protrusion. There is a focal annular fissure seen posteriorly. Mild to moderate facet hypertrophy is seen. Mild bilateral neural foraminal narrowing is seen. Minimal central canal narrowing is seen. When comparison is made with the prior images, these findings are similar. L5-S1: Postoperative changes are seen at this level, with bilateral pedicle screws and vertical fixation rods. A disc spacer is seen. There has been removal of portions of the posterior elements. Mild to moderate disc bulge is seen. Mild to moderate facet hypertrophy can be seen. Thin there is moderate left-sided and [id number] right-sided neural foraminal narrowing. The central canal is widely patent. When comparison is made with the prior images, these findings are similar. IMPRESSION: Lumbar spine degenerative changes are seen, which are relatively similar to 2019, although mildly progressed at L3-L4. L5-S1 postoperative change. Dictated by: Manuel Villafuerte M.D. on 09/02/2021 at 8:45 Approved by: Manuel Villafuerte M.D. on 09/02/2021 at 8:51
--- NOTE | 2021-09-02 08:24 | DI.MRI.S_ITS ---
PROCEDURE: MR CERVICAL SPINE WO CON INDICATIONS: chronic neck pain and right-sided radiculopathy TECHNIQUE: Noncontrast sagittal T1 spin echo and T2 fast spin echo, sagittal STIR, foraminal oblique sagittal T2 fast spin echo, and axial gradient echo or T2 fast spin echo through the cervical spine. COMPARISON: [facility], CT, CT SOFT TISSUE NECK WO CON, 06/17/2019, 7:30. [facility], CT, C-SPINE WITHOUT CONTRAST, 06/10/2014, 8:14. [facility], MR, MR LUMBAR SPINE WO CON, 09/02/2021, 9:04. [facility], CR, XR CERVICAL SPINE 2V OR 3V, 08/19/2021, 10:56. FINDINGS: Image quality: This examination is limited by involuntary motion artifact. Alignment and Curvature: There is minimal anterolisthesis seen at the C4-C5 level. There is straightening of the normal cervical lordosis. Bone Marrow: Marrow demonstrates normal overall signal. Spinal Cord: Visualized spinal cord has normal size and signal. No cerebellar tonsillar herniation. Paraspinous Soft Tissues: No paravertebral masses. Prevertebral soft tissues are normal in thickness. C2-C3: The disc height is well-preserved. Loss of disc signal is seen at this level. A mild degree of generalized disc osteophyte complex is seen. Moderate facet joint hypertrophy is seen. No significant neural foraminal or central canal narrowing can be seen. C3-C4: Moderate loss of disc height is seen. Loss of disc signal is seen. Mild to moderate disc osteophyte complex is seen. At least moderate facet hypertrophy is seen, right worse than left. There is moderate to severe bilateral neural foraminal narrowing seen at this level, left worse than right. Moderate central canal narrowing is seen. There is associated mass effect upon the ventral spinal cord. C4-C5: Mild loss of disc height is seen. Loss of disc signal is seen. Moderate generalized disc osteophyte complex is seen. Uncovertebral joint hypertrophy is seen at this level. At least moderate facet hypertrophy is seen. There is moderate to severe bilateral neural foraminal narrowing. Moderate central canal narrowing is seen. C5-C6: Moderate loss of disc height is seen. Loss of disc signal is seen. At least moderate disc osteophyte complex is seen at this level. Uncovertebral joint hypertrophy is seen at this level. There is moderate to severe bilateral neural foraminal narrowing. Moderate central canal narrowing is seen. There is associated mass effect upon the ventral spinal cord. C6-C7: Moderate loss of disc height is seen. Loss of disc signal is seen. Moderate generalized disc osteophyte complex is seen. Moderate facet joint hypertrophy is seen. Moderate bilateral neural foraminal narrowing is seen, left worse than right. Mild central canal narrowing is seen. C7-T1: The disc height is well-preserved. Loss of disc signal is seen at this level. Mild to moderate disc osteophyte complex is seen. Mild facet joint hypertrophy is seen. No significant neural foraminal or central canal narrowing can be seen. IMPRESSION: Multiple levels of cervical spine degenerative change are seen, which are overall worst at C5-C6. Dictated by: Manuel Villafuerte M.D. on 09/02/2021 at 8:38 Approved by: Manuel Villafuerte M.D. on 09/02/2021 at 8:44
== END ==
PROVIDERS: PCP Family Medicine; Referring Provider Family Medicine; Visit Provider Family Medicine
DX: M54.41 Lumbago with sciatica, right side (principal); G89.29 Other chronic pain; M54.2 Cervicalgia; M43.10 Spondylolisthesis, site unspecified; M48.061 Spinal stenosis, lumbar region without neurogenic claudication; M48.02 Spinal stenosis, cervical region; M54.16 Radiculopathy, lumbar region; M54.12 Radiculopathy, cervical region
CPT/HCPCS: 72141; 72148

== ENCOUNTER → 2021-09-16 12:27 | Outpatient (CLI) | payer OTHER, SELFPAY ==
[2021-09-16 13:46] LABS: Add Manual Diff / Slide Review NO; Basophils Absolute Auto 0 /uL (0-100); Basophils Percent Auto 0.7 % (0-2); Eosinophils Absolute Auto 100 /uL (0-450); Eosinophils Percent Auto 2.4 % (2-4); Hematocrit 37.1 % (36-46); Hemoglobin 12.6 g/dL (12.0-16.0); Lymphocytes Absolute Auto 2200 /uL (1100-4500); Lymphocytes Percent Auto 35.7 % (25-40); Mean Corpuscular Hemoglobin 31.1 PG (26-34); Mean Corpuscular Volume 91.5 fL (80-100); Monocytes Absolute Auto 500 /uL (0-900); Neutrophils Absolute Auto 3300 /uL (1500-7000); Neutrophils Percent Auto 53.2 % (50-75); Platelet Count 246 X10^3/uL (150-400); Red Blood Cell Count 4.06 X10^6/uL (4.0-5.2); Red Cell Distribution Width 14.3 % (11.6-14.8); White Blood Cell Count 6.3 X10^3/uL (4.5-11.0)
[2021-09-16 14:48] LABS: Ferritin 29 ng/mL (11-264)
[2021-09-16 15:02] LABS: Vitamin B12 > 1000 pg/mL (239-931)
[2021-09-18 15:35] LABS: Gastric Parietal Cell AB 1.8 Units (0.0-20.0)
== END ==
PROVIDERS: PCP Family Medicine; Referring Provider Internal Medicine Gastroenterology; Visit Provider Internal Medicine Gastroenterology
DX: Z12.11 Encounter for screening for malignant neoplasm of colon (principal); Z01.812 Encounter for preprocedural laboratory examination
CPT/HCPCS: 36415; 82607; 82728; 83516; 85025; 86340

== ENCOUNTER → 2021-10-31 07:24 | Outpatient (CLI) | payer OTHER, SELFPAY ==
[2021-10-31 08:00] LABS: COVID19 -Nasal RAPID POSITIVE (Negative)
== END ==
PROVIDERS: PCP Family Medicine; Visit Provider Student in an Organized Health Care Education/Training Program
DX: U07.1 COVID-19 (principal)
CPT/HCPCS: 87635

== ENCOUNTER → 2021-10-31 11:30 | Outpatient (CLI) | payer OTHER, SELFPAY ==
[2021-10-31 12:58] LABS: Add Manual Diff / Slide Review NO; Basophils Absolute Auto 0 /uL (0-100); Basophils Percent Auto 0.7 % (0-2); Eosinophils Absolute Auto 100 /uL (0-450); Hematocrit 35.3 % (36-46); Lymphocytes Absolute Auto 2300 /uL (1100-4500); Lymphocytes Percent Auto 39.6 % (25-40); Mean Corpuscular Hemoglobin 30.9 PG (26-34); Mean Corpuscular Volume 90.8 fL (80-100); Monocytes Absolute Auto 600 /uL (0-900); Neutrophils Absolute Auto 2800 /uL (1500-7000); Neutrophils Percent Auto 47.7 % (50-75); Platelet Count 259 X10^3/uL (150-400); Red Blood Cell Count 3.89 X10^6/uL (4.0-5.2); Red Cell Distribution Width 14.3 % (11.6-14.8); White Blood Cell Count 5.9 X10^3/uL (4.5-11.0)
[2021-10-31 13:21] LABS: Alanine Aminotransferase 28 IU/L (<35); Albumin 4.3 g/dL (3.5-5.0); Albumin Globulin Ratio 1.4 (1.0-2.8); Alkaline Phosphatase 75 U/L (38-126); Aspartate Aminotransferase 32 IU/L (14-36); BUN Creatinine Ratio 16.7 (6-22); Bilirubin Total 0.4 mg/dL (0.2-1.3); Blood Urea Nitrogen 12 mg/dL (7-17); Calcium 8.9 mg/dL (8.4-10.2); Carbon Dioxide 26 mmol/L (22-32); Chloride 101 mmol/L (98-107); Estimated Glomerular Filt Rate > 60 mL/min (>60); Globulin 3.1 g/dL (1.7-4.1); Glucose 102 mg/dL (80-110); HEMOLYSIS < 15 (0-50); Sodium 134 mmol/L (137-145); Total Protein 7.4 g/dL (6.3-8.2)
== END ==
PROVIDERS: PCP Family Medicine; Referring Provider Student in an Organized Health Care Education/Training Program; Visit Provider Student in an Organized Health Care Education/Training Program
DX: U07.1 COVID-19 (principal)
CPT/HCPCS: 36415; 80053; 85025; 87635

== ENCOUNTER → 2021-11-11 09:20 | Outpatient (CLI) | payer OTHER, SELFPAY ==
--- NOTE | 2021-11-11 09:22 | DI.RAD.S_ITS ---
PROCEDURE: XR KNEE LT 3V INDICATIONS: left knee pain TECHNIQUE: 3 views of the knee were acquired. COMPARISON: None. FINDINGS: Bones: No fractures or dislocations. No suspicious bony lesions. Moderate osteoarthritic degenerative changes noted in all 3 compartments of the left knee. Soft tissues: No joint effusion. No suspicious soft tissue calcifications. IMPRESSION: Moderate left knee tricompartmental osteoarthritis. Dictated by: Awa Gerardo MD, PhD on 11/11/2021 at 11:44 Approved by: Awa Gerardo MD, PhD on 11/11/2021 at 11:45
--- NOTE | 2021-11-11 09:22 | DI.RAD.S_ITS ---
PROCEDURE: XR ANKLE LT MIN 3V INDICATIONS: left knee pain TECHNIQUE: 3 views of the ankle were acquired. COMPARISON: None. FINDINGS: Bones: No fractures or dislocations. Ankle mortise is normally aligned. No suspicious bony lesions. Soft tissues: No tibiotalar joint effusion. Achilles tendon appears normal. IMPRESSION: No acute fracture. No osseous lesion. If symptoms and/or clinical suspicion for pathology persist, further assessment with repeat, or advanced imaging (e.g., CT, MRI, or bone scan) may be helpful for further assessment. Dictated by: Cain Woody M.D. on 11/11/2021 at 10:49 Approved by: Cain Woody M.D. on 11/11/2021 at 10:51
== END ==
PROVIDERS: PCP Family Medicine; Referring Provider Family Medicine; Visit Provider Family Medicine
DX: M25.562 Pain in left knee (principal); M25.572 Pain in left ankle and joints of left foot; M17.12 Unilateral primary osteoarthritis, left knee
CPT/HCPCS: 73562; 73610

== ENCOUNTER → 2021-11-12 07:44 | Outpatient (CLI) | payer OTHER, SELFPAY ==
[2021-11-12 08:48] LABS: Hemoglobin A1C% w Est Avg Glu 5.9 % (4.0-6.0)
[2021-11-12 09:04] LABS: Alanine Aminotransferase 25 IU/L (<35); Albumin 4.5 g/dL (3.5-5.0); Albumin Globulin Ratio 1.6 (1.0-2.8); Alkaline Phosphatase 69 U/L (38-126); Aspartate Aminotransferase 30 IU/L (14-36); BUN Creatinine Ratio 14.1 (6-22); Bilirubin Total 0.7 mg/dL (0.2-1.3); Blood Urea Nitrogen 11 mg/dL (7-17); Carbon Dioxide 26 mmol/L (22-32); Chloride 99 mmol/L (98-107); Cholesterol 205 mg/dL (140-199); Estimated Glomerular Filt Rate > 60 mL/min (>60); Globulin 2.8 g/dL (1.7-4.1); Glucose 104 mg/dL (80-110); HDL Cholesterol 75 mg/dL (40-60); HEMOLYSIS < 15 (0-50); LDL Cholesterol Calculated 110 mg/dL (<100); Potassium 4.3 mmol/L (3.4-5.1); Sodium 131 mmol/L (137-145); Total Protein 7.3 g/dL (6.3-8.2); Triglycerides 99 mg/dL (35-150)
[2021-11-12 09:33] LABS: TSH w/ Reflex to FT4 1.68 uIU/mL (0.47-4.68)
== END ==
PROVIDERS: PCP Family Medicine; Referring Provider Family Medicine; Visit Provider Family Medicine
DX: D51.0 Vitamin B12 deficiency anemia due to intrinsic factor deficiency (principal); E03.9 Hypothyroidism, unspecified; E78.2 Mixed hyperlipidemia; R73.9 Hyperglycemia, unspecified; E78.5 Hyperlipidemia, unspecified
CPT/HCPCS: 36415; 80053; 80061; 83036; 84443

== ENCOUNTER → 2021-12-22 08:37 | Outpatient (CLI) | payer OTHER, SELFPAY ==
[2021-12-22 09:04] LABS: Add Manual Diff / Slide Review NO; Basophils Absolute Auto 100 /uL (0-100); Eosinophils Absolute Auto 100 /uL (0-450); Eosinophils Percent Auto 1.7 % (2-4); Hematocrit 36.6 % (36-46); Hemoglobin 12.1 g/dL (12.0-16.0); Lymphocytes Absolute Auto 2500 /uL (1100-4500); Lymphocytes Percent Auto 42.3 % (25-40); Mean Corpuscular Hemoglobin 30.3 PG (26-34); Mean Corpuscular Volume 91.9 fL (80-100); Monocytes Absolute Auto 500 /uL (0-900); Monocytes Percent Auto 8.3 % (3-14); Neutrophils Absolute Auto 2700 /uL (1500-7000); Neutrophils Percent Auto 46.7 % (50-75); Platelet Count 280 X10^3/uL (150-400); Red Blood Cell Count 3.99 X10^6/uL (4.0-5.2); Red Cell Distribution Width 14.3 % (11.6-14.8); White Blood Cell Count 5.8 X10^3/uL (4.5-11.0)
[2021-12-22 09:42] LABS: Cholesterol 204 mg/dL (140-199); Creatine Kinase 175 U/L (30-135); HDL Cholesterol 78 mg/dL (40-60); LDL Cholesterol Calculated 110 mg/dL (<100); Triglycerides 82 mg/dL (35-150)
== END ==
PROVIDERS: PCP Family Medicine; Referring Provider Internal Medicine Cardiovascular Disease; Visit Provider Internal Medicine Cardiovascular Disease
DX: E78.5 Hyperlipidemia, unspecified (principal); R00.2 Palpitations
CPT/HCPCS: 36415; 80061; 82550; 85025

== ENCOUNTER → 2022-02-02 10:27 | Outpatient (CLI) | payer OTHER, SELFPAY ==
[2022-02-02 12:13] LABS: BUN Creatinine Ratio 21.8 (6-22); Blood Urea Nitrogen 17 mg/dL (7-17); Carbon Dioxide 26 mmol/L (22-32); Chloride 100 mmol/L (98-107); Estimated Glomerular Filt Rate > 60 mL/min (>60); Glucose 107 mg/dL (80-110); HEMOLYSIS < 15 (0-50); Magnesium 2.1 mg/dL (1.6-2.3); Potassium 4.6 mmol/L (3.4-5.1); Sodium 133 mmol/L (137-145)
[2022-02-02 12:40] LABS: Thyroid Stimulating Hormone 0.804 uIU/mL (0.47-4.68)
== END ==
PROVIDERS: PCP Family Medicine; Referring Provider Internal Medicine Cardiovascular Disease; Visit Provider Internal Medicine Cardiovascular Disease
DX: R00.2 Palpitations (principal)
CPT/HCPCS: 36415; 80048; 83735; 84443

== ENCOUNTER → 2022-02-21 06:50 | Outpatient (CLI) | payer OTHER, SELFPAY ==
[2022-02-21 07:49] LABS: BUN Creatinine Ratio 17.3 (6-22); Blood Urea Nitrogen 14 mg/dL (7-17); Calcium 8.8 mg/dL (8.4-10.2); Carbon Dioxide 26 mmol/L (22-32); Chloride 103 mmol/L (98-107); Estimated Glomerular Filt Rate > 60 mL/min (>60); Glucose 101 mg/dL (80-110); HEMOLYSIS < 15 (0-50); Magnesium 2.3 mg/dL (1.6-2.3); Sodium 135 mmol/L (137-145)
[2022-02-21 09:52] LABS: Thyroid Stimulating Hormone 0.943 uIU/mL (0.47-4.68)
[2022-02-22 17:49] LABS: Osmolality Urine 352 mOsmol/kg (.)
[2022-02-22 17:49] LABS: Osmolality, Serum 284 mOsmol/kg (280-301)
== END ==
PROVIDERS: PCP Family Medicine; Referring Provider Internal Medicine Cardiovascular Disease; Visit Provider Internal Medicine Cardiovascular Disease
DX: R00.2 Palpitations (principal); R53.83 Other fatigue
CPT/HCPCS: 36415; 80048; 83735; 83930; 83935; 84443

== ENCOUNTER → 2022-03-27 13:44 | Outpatient (CLI) | payer OTHER, SELFPAY ==
[2022-03-27 16:08] LABS: BUN Creatinine Ratio 20.3 (6-22); Blood Urea Nitrogen 15 mg/dL (7-17); Calcium 9.2 mg/dL (8.4-10.2); Carbon Dioxide 25 mmol/L (22-32); Chloride 101 mmol/L (98-107); Estimated Glomerular Filt Rate > 60 mL/min (>60); Glucose 86 mg/dL (80-110); HEMOLYSIS 19 (0-50); Potassium 4.5 mmol/L (3.4-5.1); Sodium 136 mmol/L (137-145)
[2022-03-29 07:54] LABS: Creatine Kinase 90 U/L (30-135)
[2022-04-03 19:38] LABS: Aldolase 3.8 U/L (3.3-10.3)
== END ==
PROVIDERS: PCP Internal Medicine; Referring Provider Internal Medicine Cardiovascular Disease; Visit Provider Internal Medicine Cardiovascular Disease
DX: E87.1 Hypo-osmolality and hyponatremia (principal); R20.2 Paresthesia of skin
CPT/HCPCS: 36415; 80048; 82085; 82550

== ENCOUNTER → 2022-11-03 11:38 | Outpatient (CLI) | payer OTHER, SELFPAY ==
[2022-11-03 13:03] LABS: Free T4, Direct Thyroxine 1.71 ng/dL (0.78-2.19)
[2022-11-03 13:17] LABS: Thyroid Stimulating Hormone 1.36 uIU/mL (0.47-4.68)
[2022-11-03 13:51] LABS: Folate > 20.0 ng/mL (2.76-20.0); Vitamin B12 838 pg/mL (239-931)
== END ==
PROVIDERS: PCP Family Medicine; Referring Provider Psychiatry & Neurology Neurology; Visit Provider Psychiatry & Neurology Neurology
DX: M54.16 Radiculopathy, lumbar region (principal); E03.9 Hypothyroidism, unspecified; Z82.0 Family history of epilepsy and other diseases of the nervous system
CPT/HCPCS: 36415; 82607; 82746; 84439; 84443

== ENCOUNTER → 2022-12-22 11:53 | Outpatient (CLI) | payer OTHER, SELFPAY ==
--- NOTE | 2022-12-22 11:53 | DI.RAD.S_ITS ---
PROCEDURE: XR LUMBAR SPINE MIN 4V INDICATIONS: BACK PAIN TECHNIQUE: 5 views of the lumbar spine were acquired, including bilateral oblique views. COMPARISON: [facility], CR, XR LUMBAR SPINE MIN 4V, 01/08/2018, 12:04. FINDINGS: Bones: 5 nonrib-bearing vertebrae are present. Patient is status post transpedicular fusion and laminectomy at L5-S1 level with surgical hardware in place. No evidence of hardware loosening or failure. Very mild leftward curvature of lumbar spine with apex at L3 level is seen. No acute compression fracture. Degenerative endplate changes are noted throughout lumbar spine more notably at L3-4 and L4-5 levels.. No vertebral body compression fractures. No suspicious bony lesions. Soft tissues: Overlying bowel gas pattern is normal. No suspicious soft tissue calcifications. Oblique images: No pars defects. IMPRESSION: Degenerative disc disease throughout lumbar spine. No acute compression fracture. Mild levoscoliosis as above. Prior fusion at L5-S1 level with anatomic lumbar spine alignment. No gross hardware loosening or failure. Dictated by: Bobby Gupta M.D. on 12/22/2022 at 17:24 Approved by: Bobby Gupta M.D. on 12/22/2022 at 17:27
== END ==
PROVIDERS: PCP Family Medicine; Referring Provider Physical Medicine & Rehabilitation; Visit Provider Physical Medicine & Rehabilitation
DX: M48.061 Spinal stenosis, lumbar region without neurogenic claudication (principal); M51.36 Other intervertebral disc degeneration, lumbar region; M43.10 Spondylolisthesis, site unspecified; M41.9 Scoliosis, unspecified; Z98.1 Arthrodesis status
CPT/HCPCS: 72110

== ENCOUNTER → 2023-02-24 07:48 | Outpatient (CLI) | payer OTHER, SELFPAY ==
[2023-02-24 10:23] LABS: Add Manual Diff / Slide Review NO; Basophils Absolute Auto 100 /uL (0-100); Basophils Percent Auto 0.9 % (0-2); Eosinophils Absolute Auto 200 /uL (0-450); Hematocrit 38.4 % (36-46); Hemoglobin 12.9 g/dL (12.0-16.0); Lymphocytes Absolute Auto 2500 /uL (1100-4500); Lymphocytes Percent Auto 43.4 % (25-40); Mean Corpuscular HGB Conc 33.5 % (30-36); Mean Corpuscular Hemoglobin 30.9 PG (26-34); Monocytes Absolute Auto 600 /uL (0-900); Monocytes Percent Auto 10.1 % (3-14); Neutrophils Absolute Auto 2500 /uL (1500-7000); Neutrophils Percent Auto 42.6 % (50-75); Platelet Count 279 X10^3/uL (150-400); Red Blood Cell Count 4.17 X10^6/uL (4.0-5.2); Red Cell Distribution Width 13.6 % (11.6-14.8); White Blood Cell Count 5.9 X10^3/uL (4.5-11.0)
[2023-02-24 10:50] LABS: Creatinine Urine Random 42.2 mg/dL
[2023-02-24 10:55] LABS: Microalbumin Urine Random < 0.6 mg/dL (0-1.6)
[2023-02-24 10:56] LABS: Alanine Aminotransferase 34 IU/L (<35); Albumin 4.4 g/dL (3.5-5.0); Albumin Globulin Ratio 1.6 (1.0-2.8); Alkaline Phosphatase 73 U/L (38-126); Aspartate Aminotransferase 31 IU/L (14-36); BUN Creatinine Ratio 18.6 (6-22); Bilirubin Total 0.9 mg/dL (0.2-1.3); Blood Urea Nitrogen 16 mg/dL (7-17); Calcium 9.4 mg/dL (8.4-10.2); Carbon Dioxide 26 mmol/L (22-32); Chloride 97 mmol/L (98-107); Cholesterol 216 mg/dL (140-199); Estimated Glomerular Filt Rate > 60 mL/min (>60); Globulin 2.7 g/dL (1.7-4.1); Glucose 100 mg/dL (80-110); HDL Cholesterol 71 mg/dL (40-60); HEMOLYSIS < 15 (0-50); LDL Cholesterol Calculated 122 mg/dL (<100); Sodium 131 mmol/L (137-145); Total Protein 7.1 g/dL (6.3-8.2); Triglycerides 114 mg/dL (35-150)
[2023-02-24 11:22] LABS: TSH w/ Reflex to FT4 1.13 uIU/mL (0.47-4.68)
[2023-02-24 11:39] LABS: Vitamin B12 962 pg/mL (239-931)
== END ==
PROVIDERS: PCP Family Medicine; Referring Provider Family Medicine; Visit Provider Family Medicine
DX: E03.9 Hypothyroidism, unspecified (principal); E78.2 Mixed hyperlipidemia; M43.10 Spondylolisthesis, site unspecified; M47.816 Spondylosis without myelopathy or radiculopathy, lumbar region; M48.061 Spinal stenosis, lumbar region without neurogenic claudication; Z85.3 Personal history of malignant neoplasm of breast; Z98.1 Arthrodesis status
CPT/HCPCS: 36415; 80053; 80061; 82043; 82570; 82607; 84443; 85025

== ENCOUNTER → 2023-02-28 09:34 | Outpatient (CLI) | payer OTHER, SELFPAY ==
--- NOTE | 2023-02-28 | DI.RAD.S_ITS ---
Bone Density Report Name: TOM FRIEDMAN Age: 77 Sex: Female Ethnicity: White Date of : 1945 Indication: osteopenia; monitoring treatment; Referring Provider: FRANCESCA CHERY Study: Bone densitometry was performed. Exam Date: February 28, 2023 Accession number: [id number] Bone Density: Region BMD T-score Z-score Classification AP Spine(L1, L2, L3) 0.917 -0.9 1.5 Normal Femoral Neck (Left) 0.542 -2.8 -0.6 Osteoporosis Total Hip (Left) 0.721 -1.8 0.1 Osteopenia Femoral Neck (Right) 0.553 -2.7 -0.5 Osteoporosis Total Hip (Right) 0.716 -1.8 0.0 Osteopenia Total Hip Mean 0.719 -1.8 0.1 Osteopenia World Health Organization criteria for BMD impression classify patients as: Normal (T-score at or above -1.0), Osteopenia (T-score between -1.0 and -2.5), or Osteoporosis (T-score at or below -2.5). 10-year Fracture Risk: FRAX not reported because: Some T-score for Spine Total or Hip Total or Femoral Neck at or below -2.5 Treated for osteoporosis Previous Exams: -- Region Exam Age BMD T-score BMD Change BMD Change Date g/cm2 vs Baseline vs Previous -- AP Spine (L1-L3) 02/28/2023 77 0.917 -0.9 0.029 (3.2%)# 0.029 (3.2%)# 10/06/2020 75 0.888 -1.2 Total Hip(Left) 02/28/2023 77 0.721 -1.8 0.037 (5.4%)# 0.037 (5.4%)# 10/06/2020 75 0.684 -2.1 Total Hip(Right) 02/28/2023 77 0.716 -1.8 0.051 (7.7%)# 0.051 (7.7%)# 10/06/2020 75 0.665 -2.3 -- *Denotes significance at 95% confidence level, LSC for AP Spine = 0.022 g/cm2, LSC for Total Hip = 0.027 g/cm2 # Denotes dissimilar scan types or analysis methods Impression: The patient has osteoporosis, based on the Left Femoral Neck T-score. No significant bone loss was observed. Discussion: PATIENT UNDER TREATMENT WITH NO SIGNIFICANT BMD LOSS SINCE LAST EXAM. In an untreated patient, BMD typically declines with age. A lack of decline or gain is usually a sign that treatment is efficacious and fracture risk is reduced. It is important to ask patients whether they are taking their medications and to encourage continued and appropriate compliance with their osteoporosis therapies to reduce fracture risk. It is also important to review their risk factors and encourage appropriate calcium and vitamin D intakes, exercise, fall prevention and other lifestyle measures. Follow-Up: Consider a repeat BMD and Vertebral Fracture Assessment (VFA) exam in 2 years or sooner if medically necessary, to reassess this patient's status. Reported by: ROBERT RUBIN M.D. on 02/28/2023 10:06:00 AM.
== END ==
PROVIDERS: PCP Family Medicine; Referring Provider Family Medicine; Visit Provider Family Medicine
DX: M81.0 Age-related osteoporosis without current pathological fracture (principal); Z78.0 Asymptomatic menopausal state; Z79.83 Long term (current) use of bisphosphonates; Z92.23 Personal history of estrogen therapy; Z90.710 Acquired absence of both cervix and uterus
CPT/HCPCS: 77080

== ENCOUNTER → 2023-08-16 07:21 | Outpatient (CLI) | payer OTHER, SELFPAY ==
[2023-08-16 09:20] LABS: Free T3, Triiodothyronine Free 3.38 pg/mL (2.77-5.27); Free T4, Direct Thyroxine 1.63 ng/dL (0.78-2.19)
[2023-08-16 09:32] LABS: Alanine Aminotransferase 34 IU/L (<35); Albumin 4.1 g/dL (3.5-5.0); Albumin Globulin Ratio 1.5 (1.0-2.8); Alkaline Phosphatase 60 U/L (38-126); Aspartate Aminotransferase 31 IU/L (14-36); BUN Creatinine Ratio 25.3 (6-22); Bilirubin Total 0.8 mg/dL (0.2-1.3); Blood Urea Nitrogen 21 mg/dL (7-17); Calcium 9.5 mg/dL (8.4-10.2); Carbon Dioxide 28 mmol/L (22-32); Chloride 100 mmol/L (98-107); Cholesterol 213 mg/dL (140-199); Estimated Glomerular Filt Rate > 60 mL/min (>60); Globulin 2.8 g/dL (1.7-4.1); Glucose 97 mg/dL (80-110); HDL Cholesterol 74 mg/dL (40-60); HEMOLYSIS < 15 (0-50); LDL Cholesterol Calculated 120 mg/dL (<100); Potassium 4.4 mmol/L (3.4-5.1); Sodium 134 mmol/L (137-145); Total Protein 6.9 g/dL (6.3-8.2); Triglycerides 93 mg/dL (35-150)
[2023-08-16 09:34] LABS: TSH w/ Reflex to FT4 1.49 uIU/mL (0.47-4.68)
[2023-08-17 08:18] LABS: Apolipoprotein B 95 mg/dL (<90)
== END ==
PROVIDERS: PCP Family Medicine; Referring Provider Family Medicine; Visit Provider Family Medicine
DX: E03.9 Hypothyroidism, unspecified (principal); E87.1 Hypo-osmolality and hyponatremia; R51.9 Headache, unspecified; G89.29 Other chronic pain; M54.12 Radiculopathy, cervical region
CPT/HCPCS: 36415; 80053; 80061; 82172; 84439; 84443; 84481

== ENCOUNTER → 2024-01-01 09:10 | Outpatient (CLI) | payer OTHER, SELFPAY ==
--- NOTE | 2024-01-01 09:11 | DI.MG.S_ITS ---
UNILATERAL LEFT DIGITAL DIAGNOSTIC MAMMOGRAM 3D/2D POST LUMPECTOMY: 01/01/2024 CLINICAL: Left breast pain. Comparison is made to exams dated: 07/05/2023 mammogram, 06/23/2022 mammogram - [facility], and 11/19/2020 mammogram - [facility]. The left breast is heterogeneously dense, which may obscure small masses (category c / 51-75% glandular tissue). No significant masses, calcifications, or other findings are seen in the breast. IMPRESSION: INCOMPLETE: NEEDS ADDITIONAL IMAGING EVALUATION There is no abnormality seen in the left breast to correspond with the pain, however, ultrasound is recommended. This exam was interpreted at Station ID: [id number]. NOTE: For mammograms, a report in lay terms will be sent to the patient. Approximately 15% of breast malignancies will not be visualized mammographically. In the management of a palpable breast mass, a negative mammogram must not discourage biopsy of a clinically suspicious lesion. Electronically Signed By: Nadeem Devlin M.D. lc/:01/01/2024 10:32:52 copy to: FRANCESCA CHERY copy to: CEDRIC WILLAMS BI-RADS Category 0: Incomplete [id number]
--- NOTE | 2024-01-01 09:11 | DI.US.S_ITS ---
PROCEDURE: US BREAST LT LIMITED COMPARISON: [facility], BREAST LT LIMITED, 05/03/2021, 8:11. INDICATIONS: LEFT BREAST PAIN FINDINGS: IMPRESSION: Dictated by: Nadeem Devlin M.D. on 01/01/2024 at 10:33 Approved by: Nadeem Devlin M.D. on 01/01/2024 at 10:34
--- NOTE | 2024-01-01 10:07 | DI.US.S_ITS ---
Patient Name: TOM FRIEDMAN date: 1945 Sex: F Attending Physician: Cristela Indications: Date: 01/01/2024 10:33 At the request of: WU HARMON Procedure: US breast LT limited LIMITED ULTRASOUND OF LEFT BREAST AND AXILLA: 01/01/2024 CLINICAL: Focal left breast pain. Comparison is made to exams dated: 01/01/2024 mammogram - [facility], 07/13/2023 ultrasound, 07/13/2023 mammogram, 07/05/2023 mammogram, 07/03/2022 ultrasound biopsy, and 07/03/2022 mammogram - [facility]. Real-time ultrasound of the left breast 12-3 o'clock, and axilla regions was performed. Merida scale images of the real-time examination were reviewed. No significant abnormalities were seen sonographically in the left breast. IMPRESSION: NEGATIVE There is no sonographic evidence of malignancy. There are no abnormalities seen in the left breast to correspond with the areas of clinical concern and pain at 1, 2, 3, and 12 o'clock, however, clinical correlation and clinical followup are recommended. Return to annual mammogram screening schedule is recommended. This exam was interpreted at Station ID: [id number]. Electronically Signed By: Nadeem Devlin M.D. lc/:01/01/2024 10:33:53 copy to: FRANCESCA CHERY copy to: CEDRIC TELLEZ Continued Report - Page 2 of 2 Patient Name: TOM FRIEDMAN date: 1945 Sex: F Attending Physician: Cristela Indications: Date: 01/01/2024 10:33 At the request of: WU HARMON Procedure: US breast LT limited letter sent: Clinical Evaluation Ultrasound BI-RADS: 1 Negative
== END ==
PROVIDERS: PCP Family Medicine; Referring Provider Physician Assistant; Visit Provider Physician Assistant
DX: R92.2 Inconclusive mammogram (principal); C50.912 Malignant neoplasm of unspecified site of left female breast; N64.4 Mastodynia; R92.332 Mammographic heterogeneous density, left breast
CPT/HCPCS: 76642; 77065; G0279

== ENCOUNTER → 2024-03-05 07:41 | Outpatient (CLI) | payer OTHER, SELFPAY ==
[2024-03-05 09:38] LABS: Add Manual Diff / Slide Review NO; Basophils Absolute Auto 0 /uL (0-100); Basophils Percent Auto 0.7 % (0-2); Eosinophils Absolute Auto 200 /uL (0-450); Eosinophils Percent Auto 2.9 % (2-4); Hematocrit 38.6 % (36-46); Hemoglobin 12.9 g/dL (12.0-16.0); Lymphocytes Absolute Auto 1700 /uL (1100-4500); Lymphocytes Percent Auto 28.2 % (25-40); Mean Corpuscular HGB Conc 33.4 % (30-36); Mean Corpuscular Volume 92.9 fL (80-100); Monocytes Absolute Auto 500 /uL (0-900); Monocytes Percent Auto 8.9 % (3-14); Neutrophils Absolute Auto 3500 /uL (1500-7000); Neutrophils Percent Auto 59.3 % (50-75); Platelet Count 274 X10^3/uL (150-400); Red Blood Cell Count 4.15 X10^6/uL (4.0-5.2); White Blood Cell Count 5.9 X10^3/uL (4.5-11.0)
[2024-03-05 10:00] LABS: Alanine Aminotransferase 34 IU/L (<35); Albumin 4.1 g/dL (3.5-5.0); Albumin Globulin Ratio 1.5 (1.0-2.8); Alkaline Phosphatase 67 U/L (38-126); Aspartate Aminotransferase 33 IU/L (14-36); BUN Creatinine Ratio 23.7 (6-22); Blood Urea Nitrogen 18 mg/dL (7-17); Calcium 9.2 mg/dL (8.4-10.2); Carbon Dioxide 24 mmol/L (22-32); Chloride 99 mmol/L (98-107); Cholesterol 223 mg/dL (140-199); Estimated Glomerular Filt Rate > 60 mL/min (>60); Globulin 2.8 g/dL (1.7-4.1); Glucose 97 mg/dL (80-110); HDL Cholesterol 78 mg/dL (40-60); HEMOLYSIS < 15 (0-50); LDL Cholesterol Calculated 121 mg/dL (<100); Potassium 4.5 mmol/L (3.4-5.1); Sodium 131 mmol/L (137-145); Total Protein 6.9 g/dL (6.3-8.2); Triglycerides 118 mg/dL (35-150)
[2024-03-05 10:09] LABS: High Sensitivity CRP - Cardiac 1.9 mg/L (1.0-3.0)
[2024-03-05 10:33] LABS: TSH w/ Reflex to FT4 1.88 uIU/mL (0.47-4.68)
[2024-03-06 05:15] LABS: Apolipoprotein B 102 mg/dL (<90)
[2024-03-08 02:39] LABS: Lipoprotein (a) <8.4 nmol/L (<75.0)
== END ==
PROVIDERS: PCP Family Medicine; Referring Provider Family Medicine; Visit Provider Family Medicine
DX: E87.1 Hypo-osmolality and hyponatremia (principal); G47.00 Insomnia, unspecified; E78.2 Mixed hyperlipidemia; Z82.49 Family history of ischemic heart disease and other diseases of the circulatory system; E03.9 Hypothyroidism, unspecified; M48.061 Spinal stenosis, lumbar region without neurogenic claudication; D51.0 Vitamin B12 deficiency anemia due to intrinsic factor deficiency; M43.00 Spondylolysis, site unspecified; M43.10 Spondylolisthesis, site unspecified
CPT/HCPCS: 36415; 80053; 80061; 82172; 83695; 84443; 85025; 86140

== ENCOUNTER → 2024-06-12 10:39 | Outpatient (CLI) | payer OTHER, SELFPAY ==
--- NOTE | 2024-06-12 10:40 | DI.RAD.S_ITS ---
PROCEDURE: XR FOOT RT MIN 3V INDICATIONS: heel and foot pain TECHNIQUE: 3 views of the foot were acquired. COMPARISON: None. FINDINGS: Bones: No fractures or dislocations. No suspicious bony lesions. Plantar and dorsal calcaneal enthesophytes. Mild hallux valgus. Mild degenerative changes of the 1st MTP joint. Soft tissues: No tibiotalar joint effusion. Achilles tendon appears normal. IMPRESSION: Plantar and dorsal calcaneal enthesophytes. 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 Dictated by: Terry Maguire M.D. on 06/12/2024 at 13:08 Approved by: Terry Maguire M.D. on 06/12/2024 at 13:08
== END ==
PROVIDERS: PCP Family Medicine; Referring Provider Family Medicine; Visit Provider Family Medicine
DX: M20.11 Hallux valgus (acquired), right foot (principal); M19.071 Primary osteoarthritis, right ankle and foot; M79.671 Pain in right foot; M77.31 Calcaneal spur, right foot
CPT/HCPCS: 73630

== ENCOUNTER → 2024-07-17 13:39 | Outpatient (CLI) | payer OTHER, SELFPAY ==
[2024-07-17 14:01] LABS: Appearance Urine UA CLEAR; Bilirubin Urine UA NEGATIVE (NEGATIVE); Color Urine UA YELLOW; Glucose Urine UA NEGATIVE (Negative); Ketones Urine UA NEGATIVE (NEGATIVE); Leukocyte Esterase Urine UA NEGATIVE (NEGATIVE); Nitrite Urine UA NEGATIVE (Negative); Occult Blood Urine UA NEGATIVE (Negative); Protein Urine UA NEGATIVE (Negative); Specific Gravity Urine UA <=1.005 (1.000-1.035); Urobilinogen Urine UA 0.2 E.U./dL (0.2)
[2024-07-17 14:03] LABS: Add Manual Diff / Slide Review NO; Basophils Absolute Auto 100 /uL (0-100); Basophils Percent Auto 1.5 % (0-2); Eosinophils Absolute Auto 200 /uL (0-450); Eosinophils Percent Auto 2.2 % (2-4); Hematocrit 40.5 % (36-46); Hemoglobin 13.4 g/dL (12.0-16.0); Lymphocytes Absolute Auto 2500 /uL (1100-4500); Lymphocytes Percent Auto 34.2 % (25-40); Mean Corpuscular HGB Conc 33.1 % (30-36); Mean Corpuscular Hemoglobin 31.5 PG (26-34); Monocytes Absolute Auto 600 /uL (0-900); Monocytes Percent Auto 8.1 % (3-14); Neutrophils Absolute Auto 3900 /uL (1500-7000); Platelet Count 284 X10^3/uL (150-400); Red Blood Cell Count 4.27 X10^6/uL (4.0-5.2); Red Cell Distribution Width 15.5 % (11.6-14.8); White Blood Cell Count 7.3 X10^3/uL (4.5-11.0)
[2024-07-17 14:08] LABS: pH Urine UA 5.5 (4.5-8.0)
[2024-07-17 14:16] LABS: Bacteria Urine None Seen; RBC Urine None Seen (0-5/HPF); Squamous Epithelial Cell Urine 1-5 /HPF (0-5/HPF); Urine Volume 10mL (spun); WBC Urine 1-5/HPF (0-5/HPF)
[2024-07-17 14:17] LABS: Culture Indicated Urine Cult Not Indicated
[2024-07-17 14:18] LABS: Alanine Aminotransferase 40 IU/L (<35); Albumin 5.1 g/dL (3.5-5.0); Albumin Globulin Ratio 1.6 (1.0-2.8); Alkaline Phosphatase 86 U/L (38-126); Aspartate Aminotransferase 44 IU/L (14-36); BUN Creatinine Ratio 25.3 (6-22); Bilirubin Total 0.5 mg/dL (0.2-1.3); Blood Urea Nitrogen 21 mg/dL (7-17); Calcium 9.5 mg/dL (8.4-10.2); Carbon Dioxide 23 mmol/L (22-32); Chloride 99 mmol/L (98-107); Estimated Glomerular Filt Rate > 60 mL/min (>60); Globulin 3.1 g/dL (1.7-4.1); Glucose 139 mg/dL (80-110); HEMOLYSIS 15 (0-50); Potassium 3.9 mmol/L (3.4-5.1); Sodium 133 mmol/L (137-145); Total Protein 8.2 g/dL (6.3-8.2)
[2024-07-17 14:40] LABS: Free T3, Triiodothyronine Free 3.21 pg/mL (2.77-5.27)
[2024-07-17 14:53] LABS: TSH w/ Reflex to FT4 4.41 uIU/mL (0.47-4.68)
== END ==
PROVIDERS: PCP Family Medicine; Referring Provider Family Medicine; Visit Provider Family Medicine
DX: E87.1 Hypo-osmolality and hyponatremia (principal); E03.9 Hypothyroidism, unspecified; D51.0 Vitamin B12 deficiency anemia due to intrinsic factor deficiency; R51.9 Headache, unspecified
CPT/HCPCS: 36415; 80053; 81001; 84439; 84443; 84481; 85025

== ENCOUNTER → 2024-07-20 13:58 | Outpatient (CLI) | payer OTHER, SELFPAY ==
--- NOTE | 2024-07-20 14:01 | DI.MRI.S_ITS ---
PROCEDURE: MR STROKE Pre- and post-contrast brain MRI, non-contrast brain MR angiogram, pre- and postcontrast neck MR angiogram. 20 cc ProHance IV contrast. INDICATIONS: abrupt severe headache 07/06. TIA sx TECHNIQUE: Brain: Noncontrast axial T1 spin echo, axial T2 fast spin echo, sagittal and axial FLAIR, coronal T2 fast spin echo, axial gradient echo, axial diffusion and ADC through the brain. After the administration of contrast, axial 3D VIBE of the cranial vasculature and brain. Brain MRA: Non-contrast 3-D time of flight MR angiogram, with multiple irrmiih-nsaqrcdjg-ngqegyagge (MIP) reformats performed. Neck MRA: Axial and sagittal TruFISP through the neck. Coronal dynamic MR angiogram during administration of contrast in the arterial and venous phases, with 3-dimenstional dsbbuka-ahrcmwnpo-gmykahjkjf (MIP) reformats constructed from subtraction images. COMPARISON: [facility], CT, HEAD WITHOUT CONTRAST, 04/16/2015, 15:17. FINDINGS: Image quality: Excellent. BRAIN: CSF spaces: Ventricles are normal in size and shape. Basal cisterns are patent. No extra-axial fluid collections. Brain: No intracranial bleeds or mass effects. Merida-white matter interface is normal. A few nonspecific FLAIR signal hyperintense foci. Diffusion weighted images show no acute infarct. Brainstem appears normal. Normal intravascular flow voids are present. No abnormal intracranial enhancement. Skull and face: Calvarial marrow signal is normal. Orbits appear normal. Sinuses: Sinuses and mastoids are clear. BRAIN MR ANGIOGRAM: Anterior circulation: Intracranial internal carotid arteries are normal in size and enhancement. The flow within the paired anterior cerebral arteries is normal and symmetric. The flow within the middle cerebral arteries is normal and symmetric. The anterior communicating artery is seen. No stenoses, occlusions, or aneurysms. Posterior circulation: The visualized portions of the vertebral arteries demonstrate normal caliber, and join to form a normal appearing basilar artery. origin of the right [employer], variant. The flow within the posterior cerebral arteries is normal and symmetric. No stenoses, occlusions, or aneurysms. NECK MR ANGIOGRAM: Carotids: Great vessels demonstrate a conventional anatomy as they arise from the aortic arch. The origins of the common carotid arteries appear patent. The calibers and courses of both common carotid arteries are normal. The bifurcation regions appear normal bilaterally. The internal carotid arteries demonstrate normal course and caliber. Posterior circulation: The origins of the vertebral arteries appear patent. More superior portions of both vertebral arteries demonstrate normal course and caliber, and join to form a normal appearing basilar artery. Miscellaneous: Subclavian arteries appear patent. Pre-contrast images through the neck show no soft tissue abnormalities. IMPRESSION: BRAIN MRI: No acute infarct. No mass. BRAIN MR ANGIOGRAM: No large vessel filling defect. NECK MR ANGIOGRAM: No critical stenosis demonstrated. Dictated by: Pramod Schultz M.D. on 07/20/2024 at 16:46 Approved by: Pramod Schultz M.D. on 07/20/2024 at 17:01
== END ==
LOC: MRI 13:59
PROVIDERS: PCP Family Medicine; Referring Provider Family Medicine; Visit Provider Family Medicine
DX: R51.9 Headache, unspecified (principal); E87.1 Hypo-osmolality and hyponatremia; E03.9 Hypothyroidism, unspecified; D51.0 Vitamin B12 deficiency anemia due to intrinsic factor deficiency
CPT/HCPCS: 70544; 70549; 70553; A9579

== ENCOUNTER → 2024-08-14 07:08 | Outpatient (CLI) | payer OTHER, SELFPAY ==
[2024-08-14 09:09] LABS: Alanine Aminotransferase 32 IU/L (<35); Albumin 4.7 g/dL (3.5-5.0); Albumin Globulin Ratio 1.9 (1.0-2.8); Alkaline Phosphatase 63 U/L (38-126); Aspartate Aminotransferase 35 IU/L (14-36); BUN Creatinine Ratio 16.1 (6-22); Bilirubin Total 0.8 mg/dL (0.2-1.3); Blood Urea Nitrogen 14 mg/dL (7-17); Calcium 9.2 mg/dL (8.4-10.2); Carbon Dioxide 24 mmol/L (22-32); Chloride 98 mmol/L (98-107); Estimated Glomerular Filt Rate > 60 mL/min (>60); Globulin 2.5 g/dL (1.7-4.1); Glucose 98 mg/dL (80-110); HEMOLYSIS < 15 (0-50); Potassium 4.5 mmol/L (3.4-5.1); Sodium 133 mmol/L (137-145); Total Protein 7.2 g/dL (6.3-8.2)
== END ==
PROVIDERS: PCP Family Medicine; Referring Provider Family Medicine; Visit Provider Family Medicine
DX: E87.1 Hypo-osmolality and hyponatremia (principal); R74.8 Abnormal levels of other serum enzymes
CPT/HCPCS: 36415; 80053

== ENCOUNTER → 2024-08-28 07:32 | Outpatient (CLI) | payer OTHER, SELFPAY ==
--- NOTE | 2024-08-28 07:33 | DI.MG.S_ITS ---
MM screening mammo BI: 08/28/2024. BI-RADS: 2 CLINICAL: 79-year old female for bilateral screening mammogram. No Tyrer-Cuzick risk score calculation due to the patient's personal history of breast cancer. Patient reports a history of left breast carcinoma diagnosed at age 77. Status-post left lumpectomy with hormonal therapy. No first-degree family history of breast cancer. Current reported family history of breast cancer: brother's daughter and brother's second daughter. Patient was diagnosed within the last 5 years. The patient had a prior left breast biopsy. PRIOR EXAMS 01/01/2024, 07/13/2023, 07/05/2023, 07/03/2022, 06/23/2022, 05/03/2021. MAMMOGRAPHY TECHNIQUE: 2D and 3D (tomosynthesis) digital mammographic views obtained, with additional images as needed for full coverage. Current study was also evaluated with a Computer Aided Detection (CAD) system. DENSITY C. The breasts are heterogeneously dense, which may obscure small masses. MAMMOGRAPHY FINDINGS Right: Biopsy marker present on the right. Benign-appearing calcification noted on the right. There are no suspicious masses, calcifications, or other findings in the breast. Left: Biopsy markers present on the left. Benign-appearing calcification and post-surgical changes noted on the left. There are no suspicious masses, calcifications, or other findings in the breast. IMPRESSION: * No evidence of malignancy with benign findings. RECOMMENDATIONS Bilateral * Annual screening mammography. OVERALL ASSESSMENT CATEGORY BI-RADS-2: Benign. The [employer] recommends annual screening mammography beginning at age 40 for women with average risk of breast cancer. ELECTRONICALLY SIGNED: Veda Celaya M.D. on 08/28/2024 at 03:14:45 PM PT Interpreting Station ID: [id number]
== END ==
PROVIDERS: PCP Family Medicine; Referring Provider Physician Assistant; Visit Provider Physician Assistant
DX: Z12.31 Encounter for screening mammogram for malignant neoplasm of breast (principal); R92.1 Mammographic calcification found on diagnostic imaging of breast; R92.333 Mammographic heterogeneous density, bilateral breasts; Z85.3 Personal history of malignant neoplasm of breast; Z80.3 Family history of malignant neoplasm of breast
CPT/HCPCS: 77063; 77067

== ENCOUNTER → 2024-10-14 08:40 | Outpatient (CLI) | payer OTHER, SELFPAY ==
--- NOTE | 2024-10-14 08:41 | DI.MRI.S_ITS ---
PROCEDURE: MR ANKLE RT WO CON INDICATIONS: INSERTIONAL ACHILLES TENDINOPATHY TECHNIQUE: Noncontrast sagittal T1 spin echo and T2 fast spin echo with fat saturation, axial proton density fast spin echo and T2 fast spin echo with fat saturation, coronal T1 spin echo and T2 fast spin echo with fat saturation through the ankle/hindfoot. COMPARISON: None. FINDINGS: Image quality: Excellent. Bones and joints: Mild osseous edema at the posterior calcaneus. Mildly edematous enthesophyte is present. No acute fracture line. Nonedematous ossification adjacent to the distal fibular tip is compatible with a remote prior ununited avulsion fracture. No hindfoot coalitions. No osteochondral injuries of the talar dome. Medial structures: The deltoid ligament and the spring ligament complex are intact. The posterior tibialis, flexor digitorum longus, and flexor hallucis longus tendons are intact. The posterior tibial neurovascular bundle appears normal within the tarsal tunnel, without extrinsic mass effect. Lateral structures: Prior osseous avulsion involving the fibular attachments of the anterior talofibular ligament and calcaneofibular ligament. Posterior talofibular ligament remains intact. The anterior and posterior tibiofibular ligaments are intact. The peroneus longus and brevis tendons demonstrate mild tendinosis. The sinus tarsi demonstrates normal fatty signal. Anterior structures: The tibialis anterior, extensor hallucis longus, and extensor digitorum longus tendons appear intact. Posterior and plantar structures: Moderate distal Achilles tendinosis. Small amount of retrocalcaneal bursal fluid. Proximal plantar fascia is thickened without surrounding edema. No disproportionate atrophy of the abductor digiti minimi muscle to suggest [place] neuropathy. IMPRESSION: 1. Moderate distal Achilles tendinosis. 2. Mild edema in the posterior calcaneus at the Achilles insertion is likely related to traction trabecular bone injury or reactive edema. No acute fracture. 3. Small retrocalcaneal bursal effusion or mild bursitis. 4. Mild peroneus brevis and longus tendinosis. 5. Remote prior osseous avulsion at the distal fibular tip involving the attachment sites of the anterior talofibular ligament and calcaneofibular ligament. 6. Moderate chronic proximal plantar fasciitis. Approved by: Dimas Taylor M.D. on 10/14/2024 at 10:59
== END ==
LOC: MRI 08:41
PROVIDERS: PCP Family Medicine; Referring Provider Podiatrist Foot & Ankle Surgery; Visit Provider Podiatrist Foot & Ankle Surgery
DX: M67.871 Other specified disorders of synovium, right ankle and foot (principal); M72.2 Plantar fascial fibromatosis
CPT/HCPCS: 73721

== ENCOUNTER → 2024-11-27 09:04 | Outpatient (CLI) | payer OTHER, SELFPAY ==
--- NOTE | 2024-11-27 09:05 | DI.MG.S_ITS ---
MM diagnostic mammo unilat LT: 11/27/2024. BI-RADS: 2 CLINICAL: 79-year old female for left diagnostic mammogram. No Tyrer-Cuzick risk score calculation due to the patient's personal history of breast cancer. Patient reports a history of left breast carcinoma diagnosed at age 77. Status-post left lumpectomy with hormonal therapy. No first-degree family history of breast cancer. Current reported family history of breast cancer: brother's daughter and brother's second daughter. The patient reports diffuse pain (1 month) in the left breast. The patient had a prior left breast biopsy. PRIOR EXAMS Mammogram(s): 08/28/2024. Ten Other Exams on 01/01/2024, 07/13/2023, 07/05/2023, 07/03/2022, 06/23/2022, 05/03/2021. MAMMOGRAPHY TECHNIQUE: 2D and 3D (tomosynthesis) digital mammographic views obtained, with additional images as needed for full coverage. Current study was also evaluated with a Computer Aided Detection (CAD) system. DENSITY Left: C. The breasts are heterogeneously dense, which may obscure small masses. MAMMOGRAPHY FINDINGS Left: Lumpectomy changes present. There are no suspicious masses, calcifications, or other findings in the breast. There are multiple biopsy clips present. Of note, because the patient's symptoms are non-focal, no skin marker was placed. IMPRESSION: Left * No evidence of malignancy with benign findings. * Lumpectomy changes noted, left RECOMMENDATIONS Left * Diffuse, non-focal symptoms, such as pain or fullness are typically benign. Clinical follow-up is recommended, and further management of these symptoms should be based on the results of clinical evaluation. If diffuse symptoms persist or become more focal in nature, further clinical evaluation should be considered. Bilateral * Annual screening mammography. COMMENTS: Findings and recommendations were conveyed to the patient during today's evaluation. OVERALL ASSESSMENT CATEGORY BI-RADS-2: Benign. The [employer] recommends annual screening mammography beginning at age 40 for women with average risk of breast cancer. ELECTRONICALLY SIGNED: Monica Mancera M.D. on 11/27/2024 at 11:20:59 AM PT Interpreting Station ID: [id number]
== END ==
PROVIDERS: PCP Family Medicine; Referring Provider Physician Assistant; Visit Provider Physician Assistant
DX: C50.912 Malignant neoplasm of unspecified site of left female breast (principal); N64.4 Mastodynia; Z80.3 Family history of malignant neoplasm of breast; R92.332 Mammographic heterogeneous density, left breast
CPT/HCPCS: 77065; G0279

== ENCOUNTER → 2024-12-04 11:24 | Outpatient (CLI) | payer OTHER, SELFPAY ==
--- NOTE | 2024-12-04 11:25 | DI.RAD.S_ITS ---
PROCEDURE: XR KNEE RT 3V INDICATIONS: chronic right knee pain TECHNIQUE: 3 views of the knee were acquired. COMPARISON: [facility], CR, XR KNEE LT 3V, 11/11/2021, 9:47. FINDINGS: Bones: Moderate diffuse generalized osseous demineralization. No fractures or dislocations. Well corticated osseous fragment laterally adjacent to the lateral femoral condyle suggestive of sequelae of remote lateral collateral ligament injury. Otherwise, no suspicious bony lesions. Moderate medial and lateral tibiofemoral and patellofemoral compartment narrowing with associated osteophytosis. Soft tissues: No joint effusion. No suspicious soft tissue calcifications. IMPRESSION: KL grade 2 tricompartmental osteoarthritis without evidence of acute bony abnormality or significant effusion. Dictated by: Mick Barton M.D. on 12/05/2024 at 1:25 Approved by: Mick Barton M.D. on 12/05/2024 at 1:26
== END ==
PROVIDERS: PCP Family Medicine; Referring Provider Family Medicine; Visit Provider Family Medicine
DX: M17.11 Unilateral primary osteoarthritis, right knee (principal); M25.561 Pain in right knee; M79.671 Pain in right foot; M72.2 Plantar fascial fibromatosis; G89.29 Other chronic pain
CPT/HCPCS: 73562

== ENCOUNTER → 2025-02-19 15:12 | Outpatient (CLI) | payer SELFPAY ==
[2025-02-19 15:37] LABS: Hematocrit 37.5 % (36-46); Hemoglobin 12.3 g/dL (12.0-16.0); Mean Corpuscular HGB Conc 32.8 % (30-36); Mean Corpuscular Hemoglobin 30.4 PG (26-34); Mean Corpuscular Volume 92.8 fL (80-100); Platelet Count 279 X10^3/uL (150-400)
[2025-02-19 16:01] LABS: Alanine Aminotransferase 28 IU/L (<35); Albumin 4.5 g/dL (3.5-5.0); Albumin Globulin Ratio 1.7 (1.0-2.8); Alkaline Phosphatase 77 U/L (38-126); Blood Urea Nitrogen 15 mg/dL (7-17); Calcium 9.1 mg/dL (8.4-10.2); Carbon Dioxide 25 mmol/L (22-32); Chloride 97 mmol/L (98-107); Estimated Glomerular Filt Rate > 60 mL/min (>60); Globulin 2.6 g/dL (1.7-4.1); Glucose 139 mg/dL (70-99); HEMOLYSIS < 15 (0-50); Magnesium 2.2 mg/dL (1.6-2.3); Potassium 4.2 mmol/L (3.4-5.1); Sodium 130 mmol/L (137-145); Total Protein 7.1 g/dL (6.3-8.2)
[2025-02-19 16:32] LABS: Thyroid Stimulating Hormone 3.74 uIU/mL (0.47-4.68)
[2025-02-23 18:39] LABS: Osmolality, Serum 273 mOsmol/kg (280-301)
== END ==
PROVIDERS: PCP Family Medicine; Referring Provider Internal Medicine Cardiovascular Disease; Visit Provider Internal Medicine Cardiovascular Disease
DX: E87.1 Hypo-osmolality and hyponatremia (principal); I47.10 Supraventricular tachycardia, unspecified; R00.2 Palpitations
CPT/HCPCS: 36415; 80053; 83735; 83930; 84443; 85027

== ENCOUNTER → 2025-03-10 12:11 | Outpatient (CLI) | payer OTHER, SELFPAY ==
--- NOTE | 2025-03-10 12:11 | DI.ECHO.S_ITS ---
[facility] : : [address] : : [place] : : [id number] : : Phone: [phone] Echocardiogram Report + + :Name: TOM FRIEDMAN Study Date: 03/10/2025 Height: 66 in : :[facility] ReadingLocation: Weight: 148 lb : : Gender: Female BSA: 1.8 m2 : :: 1945 Age: 79 yrs BP: 132/76 mmHg: :Reason For Study: PALPITATIONS : :Ordering Physician: SAM, : :JULIO Performed By: Nikunj Hightower : :Referring: JULIO VARGAS : + + Interpretation Summary The left ventricle is normal in size. The left ventricular ejection fraction is normal. The ejection fraction is estimated to be 60-65%. No significant change in LVEF from the previous study The right ventricle is normal in size and function. No significant change in RV function. No significant valvular pathology seen. The IVC is of normal diameter and collapses greater than 50% with a sniff. This suggests a low right atrial pressure of 3 mm Hg. Procedure: A two-dimensional transthoracic echocardiogram with color flow and Doppler was performed. The study quality was technically good. Comparison is made with the echocardiogram of 01/10/2022. The patient was in normal sinus rhythm during the exam. Left Ventricle: The left ventricle is normal in size. There is normal left ventricular wall thickness. There is no thrombus. The ejection fraction is estimated to be 60-65%. The left ventricular ejection fraction is normal. There are no focal wall motion abnormalities. Diastolic parameters suggest a relaxation abnormality of the left ventricle, consistent with probable normal filling pressures. Right Ventricle: The right ventricle is normal in size and function. Atria: The left atrial size is normal. Right atrial size is normal. There is no Doppler evidence for an interatrial shunt. Mitral Valve: The mitral valve leaflets are slightly calcified. The mitral valve chordae are thickened and/or calcified. There is trace mitral regurgitation. Aortic Valve: The aortic valve is trileaflet. The aortic valve opens well. There is trace aortic regurgitation. Tricuspid Valve: The tricuspid valve leaflets are thin and pliable. There is trace tricuspid regurgitation. Pulmonary artery pressures cannot be estimated because of the lack of a measurable TR jet velocity. Pulmonic Valve: The pulmonic valve is not well visualized. Great Vessels: The aortic root is normal size. The dimensions of the ascending aorta are normal. The pulmonary is not well visualized. The IVC is of normal diameter and collapses greater than 50% with a sniff. This suggests a low right atrial pressure of 3 mm Hg. Pericardium/ Pleura There is no pericardial effusion. There is no pleural effusion. MMode/2D Measurements & Calculations LVIDd: 4.4 cm LVOT diam: 2.0 cm LVIDs: 2.9 cm Ao root diam: 3.2 cm FS: 34.3 % asc Aorta Diam: 3.1 cm EPSS: 0.84 cm IVSd: 0.90 cm LVPWd: 0.79 cm LV lobo. diameter/BSA (cm/m^2): 2.5 LV sys. diameter/BSA (cm/m^2): 1.6 LA A2 area: 15.5 cm2 RA long axis: 4.3 cm LA A4 area: 13.6 cm2 RA area: 12.4 cm2 LA length (vol): 4.4 cm RA vol: 30.9 ml LA vol: 40.4 ml RA : 17.6 ml/m2 LA vol index: 23.0 ml/m2 IVC diam: 1.6 cm RVD1 (basal): 3.1 cm RVD2 (mid): 2.7 cm TAPSE: 3.1 cm Doppler Measurements & Calculations Ao V2 max: 147.4 cm/sec LVOT Max Dmitry: 106.6 cm/sec Ao V2 mean: 95.9 cm/sec LV V1 max P.5 mmHg Ao max P.7 mmHg LV V1 VTI: 23.0 cm Ao mean P.2 mmHg ALLIE(I,D): 2.5 cm2 Ao V2 VTI: 27.7 cm ALLIE(V,D): 2.2 cm2 sev ratio: 0.83 ALLIE indexed to BSA (cm^2/m^2): 1.4 MV E max dmitry: 59.8 cm/sec SV(LVOT): 70.3 ml MV A max dmitry: 60.7 cm/sec MV E/A: 0.98 Med Peak E' Dmitry: 8.9 cm/sec E/E' med: 6.7 Lat Peak E' Dmitry: 8.6 cm/sec E/E' lat: 7.0 E/e' average: 6.8 MV dec time: 0.22 sec Reading Physician:03:00 PM
== END ==
LOC: ECHO 12:11
PROVIDERS: PCP Family Medicine; Referring Provider Internal Medicine Cardiovascular Disease; Visit Provider Internal Medicine Cardiovascular Disease
DX: R00.2 Palpitations (principal)
CPT/HCPCS: 93306

== ENCOUNTER → 2025-03-16 08:05 | Outpatient (CLI) | payer OTHER, SELFPAY ==
[2025-03-16 09:09] LABS: Hemoglobin A1C% w Est Avg Glu 6.0 % (4.0-6.0)
[2025-03-16 09:16] LABS: Alanine Aminotransferase 35 IU/L (<35); Albumin 4.5 g/dL (3.5-5.0); Albumin Globulin Ratio 1.7 (1.0-2.8); Alkaline Phosphatase 69 U/L (38-126); Blood Urea Nitrogen 15 mg/dL (7-17); Calcium 9.1 mg/dL (8.4-10.2); Carbon Dioxide 23 mmol/L (22-32); Chloride 101 mmol/L (98-107); Estimated Glomerular Filt Rate > 60 mL/min (>60); Globulin 2.6 g/dL (1.7-4.1); Glucose 112 mg/dL (70-99); HEMOLYSIS < 15 (0-50); Potassium 4.1 mmol/L (3.4-5.1); Sodium 132 mmol/L (137-145); Total Protein 7.1 g/dL (6.3-8.2)
== END ==
PROVIDERS: PCP Family Medicine; Referring Provider Internal Medicine Cardiovascular Disease; Visit Provider Internal Medicine Cardiovascular Disease
DX: E87.1 Hypo-osmolality and hyponatremia (principal); R00.2 Palpitations; R73.9 Hyperglycemia, unspecified
CPT/HCPCS: 36415; 80053; 83036